=== PATIENT | male | born 1930 | race Caucasian/White ===

== ENCOUNTER 2016-08-11 12:34 | Emergency (ER) | payer OTHER, MEDICARE ==
[~2016-08-11 12:34] MED LIST: ACETAMINOPHEN P1 TA1 PO; ALBUTEROL HFA60 DOSE IN; ASPIRIN ADULT L81 MG PO; CARDIZEM C1 PO; CARTIA XT180 MG/24 PO; FLAGYL500 MG PO; FUROSEMIDE40 MG PO; IPRATROPIUM BR0.02 % IN; LEVAQUIN250 M1 PO; LEVAQUIN500 MG PO; LISINOPRIL40 MG PO; LOVASTATIN10 MG PO; RISPERDAL0.25 MG PO; RISPERIDONE1 MG PO
--- NOTE | 2016-08-11 16:09 | DIAGNOSTIC IMAGING REPORT ---
PROCEDURE: XR CHEST 1 VIEW INDICATION: WEAKNESS, initial encounter TECHNIQUE: Portable AP view 02:59 p.m. COMPARISON: Chest x-ray 02/05/2016 FINDINGS: Right mid lung scar. Left mid lung and calcified granulomas. Heart and mediastinum are normal. Tortuous aorta. Thorax is normal. IMPRESSION: 1. No acute changes 2. Old granulomatous disease 3. Right mid lung scar.
--- NOTE | 2016-08-11 17:15 | DIAGNOSTIC IMAGING REPORT ---
PROCEDURE: CT HEAD WITHOUT CONTRAST INDICATION: Head injury with persistent headache, initial encounter TECHNIQUE: Noncontrast axial images with sagittal and coronal reformations. COMPARISON: Head CT 02/05/2016 FINDINGS: Moderate cortical atrophy with normal ventricular system. Mild white matter chronic ischemic changes. Small of right pontine lacunar infarct. Small old right occipital infarct. No evidence of acute intracranial process. Extensive calcific atherosclerosis of the carotid and vertebral arteries. Dislocated left eye lens. Visualized mastoids and sinuses are clear. IMPRESSION: 1. No acute intracranial abnormality 2. Moderate atrophy and mild white matter chronic ischemic changes 3. 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 Dislocated left eye lens. 5. Findings discussed with Dr. Pitts at 05:10 p.m., [place] Standard Time
--- NOTE | 2016-08-11 17:45 | ED NURSING NOTES ---
Clinical Report - Nurses [facility] [address] [place] [address] 08/11/2016 12:35 Patient: BROOKE WAY TRIAGE Triage time 12:46 Aug 11 2016. Acuity: LEVEL 3. Chief Complaint: (headaches, ringing in the ears). Alert. No acute distress. MAVIS COMA SCORE: [place] Coma Scale: 15- eyes open spontaneously (4); best verbal response- oriented x 4 (5); best motor response- obeys commands (6). --12:54 Caitlin Man R.N. 12:46 08/11/16. BP: 135/69. HR: 69. RR: 18. O2 saturation: 100%. --12:54 Caitlin Man R.N. 13:11 08/11/16. Temp: 97.8 F. --13:11 Caitlin Man R.N. Weight: 72.5 kg stated. Height/Length: 68 inches Estimated. BMI: 24.3. --12:45 Caitlin Man R.N. Medications Lisinopril Oral. Lovastatin Oral. --12:52 Caitlin Man R.N. Tylenol PM. --12:52 Caitlin Man R.N. Aspirin Oral (Tablet 81 mg). --12:52 Caitlin Man R.N. Vitamins. --12:53 Caitlin Man R.N. Medication/allergy information source: the patient's family. --12:54 Caitlin Man R.N. Allergies Strawberries. --12:52 Caitlin Man R.N. History Arrived by private vehicle. Historian: family. Primary physician (Dr. Bush). ( Family states they are brining in their father because he fell outside last week, fell up against a railing on the porch. Hit his Right side of face. No obvious injury. This has happened twice. Took him into Rachelle's's office for check up, Rachelle states no obvious injury but his droop on his face is most likely his chronic [place] Palsy. Daughter states he has a headaches, ringing in the ears, sleepless nights and pain on his right side of face. Rachelle suggested a CT.). Onset. (last week). Treatment [facility] WORKER: None. PAST MEDICAL HX: ( unknown flu shot this year). SOCIAL HX: Smoker- current status unknown (chews). No alcohol use or drug use. NUTRITIONAL RISK ASSESSMENT: The nutritional risk assessment revealed no deficiencies. LEARNING NEEDS ASSESSMENT: The learning needs assessment revealed no barriers. SKIN INTEGRITY ASSESSMENT: Skin integrity risk assessment completed. No skin integrity risk identified. --12:54 Caitlin Man R.N. PROBLEMS: UTI - Urinary Tract Infection. Laceration. Eye Pain. CVA - Cerebrovascular Accident. Viveros's Palsy. Anemia. Leukocytosis. Hyperkalemia. Dehydration. Renal Failure. Abdominal Pain. Congestive Heart Failure. Diverticulitis. Fall. Contusion. Leaky valve in heart?. Hypercholesterolemia. Hypertension. COPD - Chronic Obstructive Pulmonary Disease. --12:53 Caitlin Man R.N. CVA - Cerebrovascular Accident [Resolved]. --12:53 Caitlin Man R.N. ADDITIONAL SURGERIES: Bowel Surgery. Tonsillectomy. --12:53 Caitlin Man R.N. Interventions ID band on patient. To room. --12:54 Caitlin Man R.N. NURSING PROGRESS NOTES Patient ready for evaluation- ED physician notified. --12:55 Caitlin Man R.N. 15:28 08/11/2016 Site #1 started via IV in the left upper arm with an 20g angiocath, with aseptic technique and good blood return; one attempt. Blood drawn: rainbow set. Labeled in the presence of the patient and sent to the lab. --15:28 Felisha Araujo R.N. 15:28 08/11/2016 Started bag #1 1000 mL IV Fluids IV NS (Saline); at 250 mL/hr over 3 hour(s) via site #1 via IV pump. Allergies verified and confirmed 5 rights. IV patency established. IV site checked: no pain, redness, or swelling. IV flushed thoroughly pre- and post-medication administration. --15:28 Felisha Araujo R.N. EKG time: (1507 PM). EKG was performed by a tech and shown to the ED physician. --15:35 Patrick Ford 16:14 08/11/16. BP: 125/81. HR: 62. RR: 18. O2 saturation: 100%. Pain level now: 0/10. --16:15 Finesse Vazquez R.N. The patient reports no complaints and he is calm and resting quietly. RESPIRATORY: No respiratory distress. Breath sounds normal. CVS: Normal sinus rhythm noted. SKIN: Skin is warm and dry. Skin color within normal limits. Call light placed in reach. Side rails up. --17:40 Finesse Vazquez R.N. 17:39 08/11/16. BP: 127/47. HR: 64. RR: 16. O2 saturation: 99%. Temp: 98.6 F (oral). Pain level now: 0/10. --17:40 Finesse Vazquez R.N. Locked/Released at 08/14/2016 19:41 by Finesse Vazquez R.N.
--- NOTE | 2016-08-11 17:45 | ED ORDER SUMMARY ---
..... Patient: BROOKE WAY OrderSheet [facility] VisitID: [id number] [place] [address] 86y, M Registration Date/Time: 08/11/2016 ORDER SHEET Weight: 72.5 kg (stated) Allergies: Strawberries GENERAL ORDERS: UA-Culture if indicated Urgent (14:11 08/11/2016 HOShaughnessy R.N. per protocol) (Ack 14:13 MICHAELurca ER Tech1) (14:50 HOShaughnessy R.N.) Chest 1V Urgent (14:53 08/11/2016 Cornelio AQUINO) (Ack 14:55 Prem ER Tech1) (18:02 MWinterer R.N.) PT with INR Urgent (14:53 08/11/2016 Cornelio AQUINO) (Ack 14:55 Prme ER Tech1) (15:28 MWinterer R.N.) BNP Urgent (14:53 08/11/2016 Cornelio AQUINO) (Ack 14:55 Meenua ER Tech1) (15:28 MWinterer R.N.) Cardiac Panel Stat (14:53 08/11/2016 Cornelio AQUINO) (Ack 14:55 Prem ER Tech1) (15:28 MWinterer R.N.) EKG - ER Stat (14:53 08/11/2016 Cornelio AQUINO) (Ack 14:55 Prem ER Tech1) (15:06 IJurca ER Tech1) CT Head wo Cont Urgent (16:06 08/11/2016 Cornelio AQUINO) (Ack 16:07 Prem ER Tech1) (18:02 MWinterer R.N.) - (road test - attempt transfer) (16:26 08/11/2016 Cornelio AQUINO) (Ack 16:29 Prem ER Tech1) (17:01 Meenua ER Tech1) ESR Urgent (17:43 08/11/2016 Cornelio AQUINO) (Ack 17:47 Prem ER Tech1) (18:02 MWinterer R.N.) MEDICATION ORDERS: IV FLUIDS: IV NS : initial bolus none -, then 250 mL/hr for 3h (NOW); Urgent (14:52 08/11/2016 Cornelio AQUINO) (Ack 15:03 MWinterer R.N.) (15:28 MWinterer R.N.) ORDER SHEET NOTES: [Electronically signed by Gagan Pitts MD (17:11 08/12/2016)] [Electronically signed by Finesse Vazquez R.N. (19:41 08/14/2016)] [Electronically locked/signed by Finesse Vazquez R.N. (19:41 08/14/2016)]
--- NOTE | 2016-08-11 17:45 | ED ORDER SUMMARY ---
..... Patient: BROOKE WAY OrderSheet [facility] VisitID: [id number] [place] [address] 86y, M Registration Date/Time: 08/11/2016 ORDER SHEET Weight: 72.5 kg (stated) Allergies: Strawberries GENERAL ORDERS: UA-Culture if indicated Urgent (14:11 08/11/2016 HOShaughnessy R.N. per protocol) (Ack 14:13 MICHAELurca ER Tech1) (14:50 HOShaughnessy R.N.) Chest 1V Urgent (14:53 08/11/2016 Cornelio AQUINO) (Ack 14:55 Prem ER Tech1) (18:02 MWinterer R.N.) PT with INR Urgent (14:53 08/11/2016 Cornelio AQUINO) (Ack 14:55 Prem ER Tech1) (15:28 MWinterer R.N.) BNP Urgent (14:53 08/11/2016 Cornelio AQUINO) (Ack 14:55 Meenua ER Tech1) (15:28 MWinterer R.N.) Cardiac Panel Stat (14:53 08/11/2016 Cornelio AQUINO) (Ack 14:55 Prem ER Tech1) (15:28 MWinterer R.N.) EKG - ER Stat (14:53 08/11/2016 Cornelio AQUINO) (Ack 14:55 Prem ER Tech1) (15:06 IJurca ER Tech1) CT Head wo Cont Urgent (16:06 08/11/2016 Cornelio AQUINO) (Ack 16:07 Prem ER Tech1) (18:02 MWinterer R.N.) - (road test - attempt transfer) (16:26 08/11/2016 Cornelio AQUINO) (Ack 16:29 Prem ER Tech1) (17:01 Meenua ER Tech1) ESR Urgent (17:43 08/11/2016 Cornelio AQUINO) (Ack 17:47 Prem ER Tech1) (18:02 MWinterer R.N.) MEDICATION ORDERS: IV FLUIDS: IV NS : initial bolus none -, then 250 mL/hr for 3h (NOW); Urgent (14:52 08/11/2016 Cornelio AQUINO) (Ack 15:03 MWinterer R.N.) (15:28 MWinterer R.N.) ORDER SHEET NOTES: [Electronically signed by Gagan Pitts MD (17:11 08/12/2016)] [Electronically signed by Finesse Vazquez R.N. (19:41 08/14/2016)] [Electronically locked/signed by Finesse Vazquez R.N. (19:41 08/14/2016)]
--- NOTE | 2016-08-11 17:45 | ED CLINICAL REPORT ---
Clinical Report - Physicians/Mid Levels [facility] [address] [place] [address] 08/11/2016 12:35 Patient: BROOKE WAY Time Seen: 14:25. Arrived- By private vehicle. Historian- patient and family. HISTORY OF PRESENT ILLNESS Chief Complaint: SLEEPING A LOT and HEADACHES. This started at 7 days ago; Pt suffered a ground level fall onto the L side of his head about 7 days ago. He has had a waxing and waning headache for the last 7 days. HIs gait us uaually poor. Two weeks ago he could use a walker a bit. Now he can transfer to his wheel chair and scoot around his home. His family notices that he is sleeping much more than usual. and is still present. It was gradual in onset and has been waxing/waning. At its maximum, severity described as moderate. When seen in the E.D., severity described as moderate. The patient has had a headache, fatigue and weakness. Similar symptoms previously: None. Recent medical care: The patient was seen recently by a health care provider. ( Family has been in contact with Dr Bush). REVIEW OF SYSTEMS No fever, sore throat, cough, difficulty breathing or abdominal pain. No nausea, vomiting, diarrhea, difficulty with urination or skin rash. No blackouts. He has had a headache. He has had difficulty with ambulation. It has been similar to previous symptoms. All systems otherwise negative, except as recorded above. PAST HISTORY Dr Bush PROBLEMS: UTI - Urinary Tract Infection. Laceration. Eye Pain. CVA - Cerebrovascular Accident. Viveros's Palsy. Anemia. Leukocytosis. Hyperkalemia. Dehydration. Renal Failure. Abdominal Pain. Congestive Heart Failure. Diverticulitis. Fall. Contusion. Leaky valve in heart?. Hypercholesterolemia. Hypertension. COPD - Chronic Obstructive Pulmonary Disease. --12:53 Caitlin Man R.N. CVA - Cerebrovascular Accident [Resolved]. SOCIAL HISTORY Residence: With family near by. he lives alone. ADDITIONAL NOTES The nursing notes have been reviewed. PHYSICAL EXAM Vital Signs: 08/11/2016 17:39 BP: 127/47. HR: 64. RR: 16. O2 saturation: 99%. Temp: 98.6 F. Pain level now: 0. 08/11/2016 16:14 BP: 125/81. HR: 62. RR: 18. O2 saturation: 100%. Pain level now: 0. 08/11/2016 13:11 Temp: 97.8 F. 08/11/2016 12:46 BP: 135/69. HR: 69. RR: 18. O2 saturation: 100%. Appearance: Alert. No acute distress. (Very hard of hearing). Eyes: Eyes normal inspection. (Childhood L eye injury). ENT: Pharynx normal. Neck: Normal inspection. Neck supple. CVS: Normal heart rate and rhythm. Respiratory: No respiratory distress. Breath sounds normal. Abdomen: No visible injury. Soft and nontender. Bowel sounds normal. Back: No CVA tenderness. Skin: Skin warm. Normal skin color. Extremities: Extremities exhibit normal ROM. No lower extremity edema. Neuro: No alteration in mental status. No cranial nerve deficit. No motor deficit. No sensory deficit. LABS, X-RAYS, AND EKG EKG: No acute ischemia. Normal sinus rhythm. Normal P waves. Normal LORRAINE. RBBB. Normal ST and T waves. Chest X-ray: (PROCEDURE: XR CHEST 1 VIEW INDICATION: WEAKNESS, initial encounter TECHNIQUE: Portable AP view 02:59 p.m. COMPARISON: Chest x-ray 02/05/2016 FINDINGS: Right mid lung scar. Left mid lung and calcified granulomas. Heart and mediastinum are normal. Tortuous aorta. Thorax is normal. IMPRESSION: 1. No acute changes 2. Old granulomatous disease 3. Right mid lung scar. Electronically Final signed by:Lobo Cuellar MD 08/11/2016 4:09:46 PM). The X-rays were interpreted by the radiologist and contemporaneously by me. CT Head: (COMPARISON: Head CT 02/05/2016 FINDINGS: Moderate cortical atrophy with normal ventricular system. Mild white matter chronic ischemic changes. Small of right pontine lacunar infarct. Small old right occipital infarct. No evidence of acute intracranial process. Extensive calcific atherosclerosis of the carotid and vertebral arteries. Dislocated left eye lens. Visualized mastoids and sinuses are clear. IMPRESSION: 1. No acute intracranial abnormality 2. Moderate atrophy and mild white matter chronic ischemic changes 3. 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 Dislocated left eye lens. 5. Findings discussed with Dr. Pitts at 05:10 p.m., [place] Standard Time Dictated by: LOBO CUELLAR MD D: LANPI;08/11/161714 <Electronically signed by LOBO CUELLAR MD in OV> 08/11/161714). The study was interpreted by the radiologist and discussed with the radiologist. Laboratory Tests: UA-Culture if indicated: (MEHUL: 08/11/2016 14:08) ( MsgRcvd 08/11/2016 14:38) Final results Test Result Flag Units (Reference) URINE COLOR STRAW URINE APPEARANCE CLEAR URINE GLUCOSE NEGATIVE (NEGATIVE) URINE BILIRUBIN NEGATIVE (NEGATIVE) URINE KETONE NEGATIVE (NEGATIVE) URINE SPECIFIC GRAVITY 1.020 (1.010-1.030) URINE PH 7.0 (5.0-8.0) URINE PROTEIN NEGATIVE (NEGATIVE) URINE UROBILINOGEN 0.2 EU/dL (0.2-1.0) URINE NITRITE NEGATIVE (NEGATIVE) URINE BLOOD NEGATIVE (NEGATIVE) URINE LEUK ESTERASE NEGATIVE (NEGATIVE) URINE RBC 0-1 rbc/hpf (0-1) URINE WBC 1-3 wbc/hpf (0-1) URINE EPITHELIAL CELLS 1-3 EPI/hpf (0-5) URINE BACTERIA TRACE (<1+) (NONE SEEN) URINE COMMENT CULT NOT INDICATED URINE CULTURES ARE SET-UP BASED ON THE FOLLOWING CRITERIA:POSITIVE NITRITEPOSITIVE LEUKOCYTE ESTERASEGREATER THAN 10 WHITE BLOOD CELLSMODERATE (2+) OR GREATER BACTERIA ESR: (MEHUL: 08/11/2016 15:15) ( MsgRcvd 08/11/2016 18:05) Final results Test Result Flag Units (Reference) SED RATE WESTERGREN 30 H mm/hr (0-20) CBC w Diff: (MEHUL: 08/11/2016 15:15) ( MsgRcvd 08/11/2016 15:44) Final results Test Result Flag Units (Reference) WHITE BLOOD COUNT 11.6 H K/uL (4.5-11.5) RED BLOOD COUNT 4.26 L M/uL (4.50-5.90) HEMOGLOBIN 13.4 L gm/dL (13.5-17.5) HEMATOCRIT 40.9 L % (41.0-53.0) MEAN CELL VOLUME 96 fL (80-100) MEAN CORPUSCULAR HGB 32 pg (26-34) MEAN CORPUSCULAR HGB CONC 33 g/dL (31-37) RED CELL DISTRIBUTION WIDTH 12.8 % (11.6-14.8) PLATELET COUNT 224 K/uL (150-400) NEUTROPHIL % 88.8 H % (50-75) LYMPH % 8.1 L % (25-40) MONO % 2.5 L % (3-14) EOSINOPHIL % 0.4 % (0-4) BASOPHIL % 0.2 % (0-2) PT with INR: (MEHUL: 08/11/2016 15:15) ( [facility] 08/11/2016 15:54) Final results Test Result Flag Units (Reference) INR 1.0 (0.8-1.2) Low Intensity Therapy: INR 1.5-2.0 PT range 18.5-23.1Mod.Intensity Therapy: INR 2.0-3.0 PT range 23.1-31.5High Intensity Therapy: INR 2.5-3.5 PT range 27.4-35.5High Intensity Therapy 2: INR 3.0-4.0 PT range 31.5-39.3 BNP: (MEHUL: 08/11/2016 15:15) ( [facility] 08/11/2016 16:03) Final results Test Result Flag Units (Reference) B-TYPE NATRIURETIC PEPTIDE 52.4 pg/ml (5-100) CHEM 13 PANEL: (MEHUL: 08/11/2016 15:15) ( [facility] 08/11/2016 16:03) Final results Test Result Flag Units (Reference) GLUCOSE 108 mg/dL (70-110) BUN 32 H mg/dL (7-18) CREATININE 0.8 mg/dL (0.6-1.3) Estimated GFR >60 mL/min Estimated GFR- >60 mL/min Note: Persistent reduction over 3 months in eGFR<60 mL/min/1.73 m2 defines CKD. Patients with eGFR values>=60 mL/min/1.73 m2 may also have CKD if evidence ofpersistent proteinuria. Additional information may be foundat www.kidney.org. SODIUM 139 mmol/L (136-145) POTASSIUM 4.9 mmol/L (3.5-5.1) Slightly hemolyzed specimen CHLORIDE 104 mmol/L (98-107) CARBON DIOXIDE 32 mmol/L (21-32) CALCIUM 9.2 mg/dL (8.5-10.1) TOTAL PROTEIN 7.1 g/dL (6.4-8.2) ALBUMIN 3.3 g/dL (3.3-5.0) BILIRUBIN, TOTAL 0.8 mg/dL (0.0-1.0) ALKALINE PHOSPHATASE 69 U/L (46-116) AST (SGOT) 27 U/L (15-37) Slightly hemolyzed specimen ALT (SGPT) 36 U/L (12-78) CPK 41 U/L (24-260) Slightly hemolyzed specimen MAGNESIUM 2.2 mg/dL (1.8-2.4) TROPONIN I <0.05 ng/mL (0.00-1.5) TROPONIN REFERENCE RANGE:<0.1 NEGATIVE0.1-1.5 INDETERMINANT>1.5 POSITIVE . PROGRESS AND PROCEDURES Course of Care: A sed rate ordered at the time of discharge is mildly elevated but not elevated to the extent expected for temporal artreitis. I cannot find evidence for an acute neurologic event or trauma. No evidence of pneumonia, UTI toxic or metabilic abnormality. His family and I are concerned that he may need a higher level of care before long. The elevated ESR is not elevated enough to warrant an temporal artery Bx for Dx of temporal arteritis. Rare exceptions can occur. Disposition: Discharged. Condition: stable. CLINICAL IMPRESSION WEAKNESS. INSTRUCTIONS (NO NEW ILLNESS OR INJURY FOUND WEAKNESS MAY MAKE LIVING IN CURRENT HOME A PROBLEM FOR SURE REPLACE THE FALL BUTTON A SED RATE IS PENDING.). Follow-up: Follow up with doctor CROW in five days. Understanding of the discharge instructions verbalized by patient and family. (Electronically signed by Gagan Pitts MD 08/12/2016 17:11)
--- NOTE | 2016-08-11 17:45 | ED NURSING NOTES ---
Clinical Report - Nurses [facility] [address] [place] [address] 08/11/2016 12:35 Patient: BROOKE WAY TRIAGE Triage time 12:46 Aug 11 2016. Acuity: LEVEL 3. Chief Complaint: (headaches, ringing in the ears). Alert. No acute distress. MAVIS COMA SCORE: [place] Coma Scale: 15- eyes open spontaneously (4); best verbal response- oriented x 4 (5); best motor response- obeys commands (6). --12:54 Caitlin Man R.N. 12:46 08/11/16. BP: 135/69. HR: 69. RR: 18. O2 saturation: 100%. --12:54 Caitlin Man R.N. 13:11 08/11/16. Temp: 97.8 F. --13:11 Caitlin Man R.N. Weight: 72.5 kg stated. Height/Length: 68 inches Estimated. BMI: 24.3. --12:45 Caitlin Man R.N. Medications Lisinopril Oral. Lovastatin Oral. --12:52 Caitlin Man R.N. Tylenol PM. --12:52 Caitlin Man R.N. Aspirin Oral (Tablet 81 mg). --12:52 Caitlin Man R.N. Vitamins. --12:53 Caitlin Man R.N. Medication/allergy information source: the patient's family. --12:54 Caitlin Man R.N. Allergies Strawberries. --12:52 Caitlin Man R.N. History Arrived by private vehicle. Historian: family. Primary physician (Dr. Bush). ( Family states they are brining in their father because he fell outside last week, fell up against a railing on the porch. Hit his Right side of face. No obvious injury. This has happened twice. Took him into Rachelle's's office for check up, Rachelle states no obvious injury but his droop on his face is most likely his chronic [place] Palsy. Daughter states he has a headaches, ringing in the ears, sleepless nights and pain on his right side of face. Rachelle suggested a CT.). Onset. (last week). Treatment APPLICATIONS INSTRUCTOR: None. PAST MEDICAL HX: ( unknown flu shot this year). SOCIAL HX: Smoker- current status unknown (chews). No alcohol use or drug use. NUTRITIONAL RISK ASSESSMENT: The nutritional risk assessment revealed no deficiencies. LEARNING NEEDS ASSESSMENT: The learning needs assessment revealed no barriers. SKIN INTEGRITY ASSESSMENT: Skin integrity risk assessment completed. No skin integrity risk identified. --12:54 Caitlin Man R.N. PROBLEMS: UTI - Urinary Tract Infection. Laceration. Eye Pain. CVA - Cerebrovascular Accident. Viveros's Palsy. Anemia. Leukocytosis. Hyperkalemia. Dehydration. Renal Failure. Abdominal Pain. Congestive Heart Failure. Diverticulitis. Fall. Contusion. Leaky valve in heart?. Hypercholesterolemia. Hypertension. COPD - Chronic Obstructive Pulmonary Disease. --12:53 Caitlin Man R.N. CVA - Cerebrovascular Accident [Resolved]. --12:53 Caitlin Man R.N. ADDITIONAL SURGERIES: Bowel Surgery. Tonsillectomy. --12:53 Caitlin Man R.N. Interventions ID band on patient. To room. --12:54 Caitlin Man R.N. NURSING PROGRESS NOTES Patient ready for evaluation- ED physician notified. --12:55 Caitlin Man R.N. 15:28 08/11/2016 Site #1 started via IV in the left upper arm with an 20g angiocath, with aseptic technique and good blood return; one attempt. Blood drawn: rainbow set. Labeled in the presence of the patient and sent to the lab. --15:28 Felisha Araujo R.N. 15:28 08/11/2016 Started bag #1 1000 mL IV Fluids IV NS (Saline); at 250 mL/hr over 3 hour(s) via site #1 via IV pump. Allergies verified and confirmed 5 rights. IV patency established. IV site checked: no pain, redness, or swelling. IV flushed thoroughly pre- and post-medication administration. --15:28 Felisha Araujo R.N. EKG time: (1507 PM). EKG was performed by a tech and shown to the ED physician. --15:35 Patrick Ford 16:14 08/11/16. BP: 125/81. HR: 62. RR: 18. O2 saturation: 100%. Pain level now: 0/10. --16:15 Finesse Vazquez R.N. The patient reports no complaints and he is calm and resting quietly. RESPIRATORY: No respiratory distress. Breath sounds normal. CVS: Normal sinus rhythm noted. SKIN: Skin is warm and dry. Skin color within normal limits. Call light placed in reach. Side rails up. --17:40 Finesse Vazquez R.N. 17:39 08/11/16. BP: 127/47. HR: 64. RR: 16. O2 saturation: 99%. Temp: 98.6 F (oral). Pain level now: 0/10. --17:40 Finesse Vazquez R.N. Locked/Released at 08/14/2016 19:41 by Finesse Vazquez R.N.
--- NOTE | 2016-08-14 19:42 | ED DISCHARGE INSTRUCTIONS ---
Patient: BROOKE WAY General Instructions [facility] VisitID: [id number] [address] [place] [address] 86y, M Registration Date/Time: 08/11/2016 WEAKNESS. INSTRUCTIONS (NO NEW ILLNESS OR INJURY FOUND WEAKNESS MAY MAKE LIVING IN CURRENT HOME A PROBLEM FOR SURE REPLACE THE FALL BUTTON A SED RATE IS PENDING.). Follow-up: Follow up with doctor MARIA in five days. Understanding of the discharge instructions verbalized by patient and family. (Electronically signed by Gagan Pitts MD 08/12/2016 17:11)
--- NOTE | 2016-08-14 19:42 | ED DISCHARGE INSTRUCTIONS ---
Patient: BROOKE WAY General Instructions [facility] VisitID: [id number] [address] [place] [address] 86y, M Registration Date/Time: 08/11/2016 WEAKNESS. INSTRUCTIONS (NO NEW ILLNESS OR INJURY FOUND WEAKNESS MAY MAKE LIVING IN CURRENT HOME A PROBLEM FOR SURE REPLACE THE FALL BUTTON A SED RATE IS PENDING.). Follow-up: Follow up with doctor MARIA in five days. Understanding of the discharge instructions verbalized by patient and family. (Electronically signed by Gagan Pitts MD 08/12/2016 17:11)
--- NOTE | 2016-08-14 19:42 | ED MAR SUMMARY ---
..... Medication Administration Record [facility] [address] [place] [address] Patient: BROOKE WAY Visit ID: [id number] 86y, M Weight: 72.5 kg Height/Length: 68 in BMI: 24.3 ALLERGIES: Strawberries Start 15:28 08/11/2016 Felisha Araujo R.N. Medication Administered: IV NS (SALINE), Dose: IV Fluids over 3 hour(s), Rate: 250 mL/hr, Dispensed: 1000 mL bag, Site: #1 left upper arm. Medication Ordered: IV NS : initial bolus none -, then 250 mL/hr for 3h (NOW); Urgent.
--- NOTE | 2016-08-14 19:42 | ED MED RECONCILIATION SUMMARY ---
Patient: BROOKE WAY Medication Reconciliation Report [facility] VisitID: [id number] [address] [place] [address] 86y, M Registration Date/Time: 08/11/2016 Weight: 72.5 kg Height/Length: 68 in. BMI: 24.3 ALLERGIES: Strawberries The patient's Home Medications are listed below: THE FOLLOWING MEDICATIONS NEED TO BE RECONCILED: Aspirin Oral (81 mg) Lisinopril Oral Lovastatin Oral Tylenol PM Vitamins The source(s) of the original Home Medication information: patient's family member The following Medications were given to the patient in the Emergency Department: IV NS IV Fluids bolus 0, then 250 mL/hr, administered: 08/11/2016 3:28:00 PM The following Medications were prescribed to the patient: None.
--- NOTE | 2016-08-14 19:42 | ED MAR SUMMARY ---
..... Medication Administration Record [facility] [address] [place] [address] Patient: BROOKE WAY Visit ID: [id number] 86y, M Weight: 72.5 kg Height/Length: 68 in BMI: 24.3 ALLERGIES: Strawberries Start 15:28 08/11/2016 Felisha Araujo R.N. Medication Administered: IV NS (SALINE), Dose: IV Fluids over 3 hour(s), Rate: 250 mL/hr, Dispensed: 1000 mL bag, Site: #1 left upper arm. Medication Ordered: IV NS : initial bolus none -, then 250 mL/hr for 3h (NOW); Urgent.
--- NOTE | 2016-08-14 19:42 | ED MED RECONCILIATION SUMMARY ---
Patient: BROOKE WAY Medication Reconciliation Report [facility] VisitID: [id number] [address] [place] [address] 86y, M Registration Date/Time: 08/11/2016 Weight: 72.5 kg Height/Length: 68 in. BMI: 24.3 ALLERGIES: Strawberries The patient's Home Medications are listed below: THE FOLLOWING MEDICATIONS NEED TO BE RECONCILED: Aspirin Oral (81 mg) Lisinopril Oral Lovastatin Oral Tylenol PM Vitamins The source(s) of the original Home Medication information: patient's family member The following Medications were given to the patient in the Emergency Department: IV NS IV Fluids bolus 0, then 250 mL/hr, administered: 08/11/2016 3:28:00 PM The following Medications were prescribed to the patient: None.
== END 2016-08-11 18:00 | disposition home or self-care (01) ==
LOC: ED SRH 12:34
DX: R53.1 Weakness (principal); I10 Essential (primary) hypertension; I50.9 Heart failure, unspecified; J44.9 Chronic obstructive pulmonary disease, unspecified; E87.5 Hyperkalemia
CPT/HCPCS: 90004; 90100; 90616; 91320; 92610; 92720; 94060; 95059; 95150

== ENCOUNTER 2016-08-21 15:04 | Observation (INO) | payer OTHER, MEDICARE ==
[~2016-08-21] VITALS: Ht 177.8 cm; Wt 74.1 kg
--- NOTE | 2016-08-21 15:40 | DIAGNOSTIC IMAGING REPORT ---
PROCEDURE: CT HEAD WITHOUT CONTRAST INDICATION: STROKE TECHNIQUE: Axial CT images were acquired through the head. Coronal and sagittal reformations were created. COMPARISON: Head CT 08/11/2016 FINDINGS: Moderate cortical atrophy with normal ventricular system. Mild white matter chronic ischemic changes. Small of right pontine lacunar infarct. Small old right occipital infarct. No evidence of acute intracranial process. Extensive calcific atherosclerosis of the carotid and vertebral arteries. Dislocated left eye lens. Visualized mastoids and sinuses are clear. IMPRESSION: 1. No acute intracranial abnormality 2. Moderate atrophy and mild white matter chronic ischemic changes 3. 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 Dislocated left eye lens. All CT scans at this facility use dose modulation, iterative reconstruction, and/or weight-based dosing when appropriate to reduce radiation dose to as low as reasonably achievable.
--- NOTE | 2016-08-21 16:28 | DIAGNOSTIC IMAGING REPORT ---
PROCEDURE: XR CHEST 1 VIEW INDICATION: CONGESTION TECHNIQUE: Portable AP view 04:00 p.m. COMPARISON: Chest 08/11/2016 FINDINGS: Right mid lung scar. Left mid lung and calcified granulomas. Heart and mediastinum are normal. Tortuous aorta. Thorax is normal. IMPRESSION: 1. No acute changes 2. Old granulomatous disease
--- NOTE | 2016-08-21 20:44 | ED ORDER SUMMARY ---
..... Patient: BROOKE WAY OrderSheet [facility] VisitID: [id number] [address] [place] [address] 86y, M Registration Date/Time: 08/21/2016 ORDER SHEET Weight: 90.7 kg (estimated) Allergies: Strawberries GENERAL ORDERS: CT Head wo Cont Urgent (15:20 08/21/2016 Amandeep Mckinney) (Ack 15:21 TBergley) (15:40 MCampbell) Stroke Panel Stat (15:48 08/21/2016 Amandeep Mckinney) (Ack 15:55 TBergley) (17:31 TBergley) UA-Culture if indicated Urgent (15:48 08/21/2016 Amandeep Mckinney) (Ack 15:55 TBergley) (17:59 EInderbitzen R.N.) Chest 1V Urgent (15:48 08/21/2016 Amandeep Mckinney) (Ack 15:55 TBergley) (16:26 TBergley) Soft Restraints per protocol (19:45 08/21/2016 EInderbitzen R.N. verbal order read back to Amandeep Mckinney) (20:36 EInderbitzen R.N.) MEDICATION ORDERS: Haldol IM 5 mg (HIGH ALERT MEDICATION, NOW) (18:03 08/21/2016 EInderbitzen R.N. verbal order read back to Amandeep Mckinney) (18:04 EInderbitzen R.N.) IV FLUIDS: Ativan IV 0.5 mg (HIGH ALERT MEDICATION, NOW) (16:22 08/21/2016 Amandeep Mckinney) (16:30 EInderbitzen R.N.) IV NS : initial bolus none -, then 1000 mL/hr for X1 (NOW) (17:25 08/21/2016 Amandeep Mckinney) (19:26 EInderbitzen R.N.) Haldol IV 5 mg (HIGH ALERT MEDICATION, NOW) (17:45 08/21/2016 Amandeep Mckinney) (Cancelled: Physician Order18:03 EInderbitzen R.N.) Haldol IV 5 mg (HIGH ALERT MEDICATION, NOW) (20:42 08/21/2016 Amandeep Mckinney) (21:26 Lucas Vallejo) ORDER SHEET NOTES: [Electronically signed by Mark Alfonso Dr. (20:52 08/21/2016)] [Electronically signed by Kristel Cui R.N. (21:37 08/21/2016)] [Electronically locked/signed by Kristel Cui R.N. (21:37 08/21/2016)]
--- NOTE | 2016-08-21 20:44 | ED NURSING NOTES ---
Clinical Report - Nurses [facility] [address] [place] [address] 08/21/2016 15:04 Patient: BROOKE WAY TRIAGE Triage time 1506. Acuity: LEVEL 2. Chief Complaint: IMPAIRED SPEECH and DECREASED RESPONSIVENESS. CHERYL COMA SCORE: Cheryl Coma Scale: 13- eyes open to voice (3); best verbal response- disoriented (4); best motor response- obeys commands (6). --15:20 Miranda Jorge R.N. 15:09 08/21/16. BP: 117/54. HR: 51. RR: 8. O2 saturation: 100%. Temp: 98.4 F. --15:20 Miranda Jorge R.N. Weight: 90.7 kg estimated. Height/Length: 70 inches Estimated. BMI: 28.7. --15:15 Miranda Jorge R.N. Medications Aspirin Oral (Tablet 81 mg). Lisinopril Oral. Lovastatin Oral. Tylenol PM. Vitamins. --15:11 Miranda Jorge R.N. Sertraline HCl Oral. --15:11 Miranda Jorge R.N. LORazepam Oral. --15:11 Miranda Jorge R.N. Allergies Strawberries. --15:11 Miranda Jorge R.N. History ( 1501 Code stroke called. Per EMS pt was having slurred speech and decreased LOC. Slurred speech baseline per neighbor secondary to previous CVAs. Per EMS pt has had cough and fever and been in and out of schillhammer's office repeatedly over the past 3 weeks for shortness of breath.). Treatment RECREATIONAL THERAPY TECHNICIAN: Finger stick glucose performed (142). BP: 110/60. HR: 90. O2 saturation: 98 on oxygen (at 2 liters/minute). End tidal CO2: 35. SOCIAL HX: ( unable to obtain history due to DLOC and slurred speech). --15:20 Luisito, K Christina, R.N. Interventions ID band on patient. To treatment room. --15:20 Miranda Jorge R.N. PHYSICAL ASSESSMENT 15:22 08/21/16. To room via stretcher. GENERAL / NEURO / PSYCH: The patient is disoriented to place, time and situation. Slurred speech. Pupillary exam: (right pinpoint, left). Left pupil: 8mm. Left pupil not reactive. HEENT: No facial asymmetry noted. RESPIRATORY: Respirations not labored. CVS: Capillary refill less than 2 seconds. SKIN: Skin is intact, warm and dry. --15:22 Miranda Jorge R.N. NURSING PROGRESS NOTES 15:22 08/21/16. Patient transported to CT. --15:22 Miranda Jorge R.N. 15:30. Patient returned from CT by stretcher with nurse. (accompanied to CT by this RN). --15:32 Miranda Jorge R.N. 15:33 08/21/16. The plan of care for this patient has been created. motorcycle engine assembler, pulse oximeter, end tidal CO2 monitor and NIBP monitor placed on patient. Patient gowned. Head of bed elevated. Call light placed in reach. Side rails up x 2. Bed placed in lowest position. Brakes of bed on. Patient ready for evaluation- chart flagged. --15:33 Miranda Jorge R.N. 15:44 08/21/16. HR: 48. RR: 12. O2 saturation: 99%. --15:44 Miranda Jorge R.N. 15:47 08/21/16. HR: 50. RR: 18. O2 saturation: 100%. Pain level now 0/10. --15:47 Kristel Cui R.N. 15:29 08/21/2016 Site #2 started via IV in the left hand with an 20g angiocath, with aseptic technique and good blood return; one attempt. Blood drawn: rainbow set. Labeled in the presence of the patient and sent to the lab. Saline lock flushed with 10 mL saline. --16:29 Kristel Cui R.N. 15:47 08/21/16. Cardiac rhythm: sinus bradycardia. The patient reports no complaints and he is calm and resting quietly. Overall patient status is the same- he states feels the same. Patient waiting for CT results. --15:47 Kristel Cui R.N. 15:49 08/21/16. Care transferred and report given (Kristel Snell). --15:49 Miranda Jorge R.N. 16:00 08/21/2016 Site #1 started prior to arrival by EMS via IV in the right wrist with an 18g angiocath. --16:29 Kristel Cui R.N. 16:29 08/21/2016 Ativan (LORazepam) IVP 0.5 mg given over 1 minute(s) via site #1. Allergies verified, confirmed 5 rights and sedative warning given to the patient and patient's family. IV patency established. IV site checked: no pain, redness, or swelling. IV flushed thoroughly pre- and post-medication administration. IVP given by RN. --16:30 Kristel Cui R.N. 16:30 08/21/16. BP: 133/67. HR: 53. RR: 18. O2 saturation: 100%. --16:30 Kristel Cui R.N. 16:30 08/21/16. Cardiac rhythm: sinus bradycardia. ( Patient restless, pulling at ivs Meds given). --16:30 Kristel Cui R.N. 16:40 08/21/16. HR: 54. RR: 11. O2 saturation: 100% on nasal cannula at 2 liters/minute. Pain level now: 0/10. --16:42 Miranda Jorge R.N. 16:42 08/21/16. --16:42 Miranda Jorge R.N. Cardiac rhythm: right bundle branch block. --16:42 Miranda Jorge R.N. 16:42 08/21/16. BP: 111/70. HR: 54. RR: 11. O2 saturation: 100%. --16:42 Miranda Jorge R.N. late entry - 17:25 08/21/16. Patient not waiting for CT results. ( Patient crawled out of bed and is crawling around on the floor. Family unable to assist patient back to bed. he has pulled out EMS IV in right hand. Bleeding controlled. Code barragan called for assistance getting patient back to bed. Ward vest and bilateral soft wrist restraints applied. MD order received for restraints. Family updated on status and interventions. they are not willing to stay in room to help keep patient calm.). --19:12 Kristel Cui R.N. 17:30 08/21/16. 16 fr in/out catheterization. Reason for indwelling catheter: requires prolonged immobilization and patient's decreased level of consciousness. During procedure hand hygiene observed and sterile equipment and aseptic technique used. Return of 100 mL yellow-colored clear urine. He tolerated procedure well. Patient ID band checked for patient name and birthdate: patient confirmed. Catheterized urine collected with return of yellow-colored clear urine; sample sent to lab for urinalysis and culture. Specimen labeled in the presence of the patient. --17:35 Kristel Cui R.N. 17:50 08/21/16. ( Patient still agitated, combative. Pulled out 2nd IV in left hand. Blood all over sheets, gown, floor. MD informed. Haldol ordered. unable to restart IV due to safety. Elia in place. bilat soft wrist restraints in place but pt still able to move about on bed.). --18:02 Kristel Cui R.N. 17:55 08/21/2016 HALDOL (Haloperidol Lactate) IM 5 mg given. Given in the left deltoid. Allergies verified, confirmed 5 rights and sedative warning given to the patient. --18:04 Kristel Cui R.N. 19:20 08/21/2016 Site #3 started via IV in the right forearm with an 20g angiocath, with aseptic technique and good blood return; one attempt. Saline lock flushed with 10 mL saline. --19:25 Kristel Cui R.N. 19:22 08/21/2016 Started bag #1 1000 mL IV Fluids IV NS (Saline); at 2000 mL/hr over 30 minute(s) via site #3. Allergies verified and confirmed 5 rights. IV patency established. IV site checked: no pain, redness, or swelling. IV flushed thoroughly pre- and post-medication administration. --19:26 Kristel Cui R.N. ( Patient was able to get out of soft wrist restraints. Pt repostioned on bed. Ward vest and B/L wrist restraints reapplied. Distal pulses strong with good cap refill. Iv restarted in right lower arm. IV fluids running without s/o infiltration.). --21:08 Kristel Cui R.N. 21:08/21/16. BP: 146/90. HR: 66. RR: 20. O2 saturation: 97%. --21: Kristel Cui R.N. 17:15 08/21/2016 Site #2 removed upon admission (patient pulled out IV). --21: Kristel Cui R.N. 19:00 08/21/2016 Site #1 removed upon admission (patient pulled out IV). --21:10 Kristel Cui R.N. 21:08/21/16. Cardiac rhythm: normal sinus rhythm. --21: Kristel Cui R.N. 21:08/21/2016 HALDOL (Haloperidol Lactate) IVP 5 mg given over 1 minute(s) via site #3. Allergies verified, confirmed 5 rights and sedative warning given to the patient. IV patency established. IV site checked: no pain, redness, or swelling. IV flushed thoroughly pre- and post-medication administration. IVP given by RN. --: Kristel Cui R.N. DISPOSITION / DISCHARGE :08/21/16. Condition at departure: unchanged and stable. Admitted to the Critical Care Unit. Report was given to a nurse via a phone call. Report included patient's care, treatment, medications, reviewed medication reconcilliation, and condition (including any recent changes or anticipated changes). All questions were answered. --21: Kristel Cui R.N. 21:32 08/21/16. Patient's personal items include: pants, watch, belt and bag of medications; items were placed in belongings bag. --21:32 Kristel Cui R.N. 21:37 08/21/16. ( Pericare completed. New brief applied. Pt more cooperative after IV Haldol). --21:37 Kristel Cui R.N. 21:08 08/21/16. BP: 146/90. HR: 66. RR: 20. O2 saturation: 97%. 16:42 08/21/16. BP: 111/70. HR: 54. RR: 11. O2 saturation: 100%. 16:40 08/21/16. HR: 54. RR: 11. O2 saturation: 100% on nasal cannula at 2 liters/minute. Pain level now: 0/10. 16:28 08/21/16. BP: 133/67. HR: 53. RR: 18. O2 saturation: 100%. 15:44 08/21/16. HR: 50. RR: 18. O2 saturation: 100%. Pain level now 0/10. 15:44 08/21/16. HR: 48. RR: 12. O2 saturation: 99%. 15:09 08/21/16. BP: 117/54. HR: 51. RR: 8. O2 saturation: 100%. Temp: 98.4 F. --21:37 Kristel Cui R.N. Locked/Released at 08/21/2016 21:37 by Kristel Cui R.N.
--- NOTE | 2016-08-21 20:44 | ED CLINICAL REPORT ---
Clinical Report - Physicians/Mid Levels [facility] [address] [place] [address] 08/21/2016 15:04 Patient: BROOKE WAY Time Seen: 15:13; initial patient contact. Arrived- By ambulance. Historian- EMS personnel and family. History limited by altered mental status. Physical Exam limited by altered mental status. HISTORY OF PRESENT ILLNESS Chief Complaint: CHANGED MENTAL STATUS. The patient has been disoriented and confused and is described as having decreased responsiveness. This started about 3 weeks ago and is still present (worse since this AM). (Has suffered multiple CVA's in the past.). No history of chronic dementia. No alcohol recently, recent drug use or medication given prior to arrival. Dextro stick was not low prior to arrival. The patient has had difficulty walking. No recent fall. Similar symptoms previously: Several times. Recent medical care: The patient was seen recently in the office. ( Seen multiple times by PCP for dyspnea, MS change today). REVIEW OF SYSTEMS No fever or sputum production. He has had difficulty breathing, a cough and altered mental status. He has had difficulty walking. All systems otherwise negative, except as recorded above. PAST HISTORY ( UTI - Urinary Tract Infection. Laceration. Eye Pain. CVA - Cerebrovascular Accident. Viveros's Palsy. Anemia. Leukocytosis. Hyperkalemia. Dehydration. Renal Failure. Abdominal Pain. Congestive Heart Failure. Diverticulitis. Fall. Contusion. Leaky valve in heart?. Hypercholesterolemia. Hypertension. COPD - Chronic Obstructive Pulmonary Disease. CVA - Cerebrovascular Accident). Medications: LORazepam Oral. Sertraline HCl Oral. Aspirin Oral (Tablet 81 mg). Lisinopril Oral. Lovastatin Oral. Tylenol PM. Vitamins. Allergies: Strawberries. SOCIAL HISTORY Smoker - current status unknown. Is a local resident. Resides in a house. He lives with a family member. ADDITIONAL NOTES The nursing notes have been reviewed with agreement regarding the chief complaint, PMH and patient medications and allergies. PHYSICAL EXAM Vital Signs: 08/21/2016 15:09 BP: 117/54. HR: 51. RR: 8. O2 saturation: 100%. Temp: 98.4 F. Have been reviewed and do not appear to be correct. Hypotensive. Bradycardic. Bradypneic. Temperature normal. Oxygen saturation normal. Appearance: The patient's speech is slurred. Patient in mild distress. Eyes: Pupillary exam: Right pupil 5mm and round. Left pupil: 1mm and round. Left pupil not reactive to light directly or consensually or with accommodation. ENT: Dry mucous membranes present. Neck: Normal inspection. CVS: Bradycardia. Heart sounds normal. Respiratory: No respiratory distress. Breath sounds normal. Abdomen: Soft and nontender. No organomegaly. The bowel sounds are not abnormal. Skin: Poor skin turgor. Skin warm and dry. Normal skin color. No rash. Extremities: No lower extremity edema. Neuro: Altered mental status. Eyes open spontaneously. Best verbal response: incoherent speech. Best motor response: localizes to pain. Expressive aphasia. No weakness. No pronator drift. LABS, X-RAYS, AND EKG Chest X-ray: No acute disease. No infiltrate. (1. No acute changes 2. Old granulomatous disease). Views: AP. Technique: good. The X-rays were independently viewed by me, interpreted by the radiologist and contemporaneously by me and discussed with the radiologist. A comparison with prior films reveals that the findings are unchanged. Interpretation time: 17:26. CT Head: (1. No acute intracranial abnormality 2. Moderate atrophy and mild white matter chronic ischemic changes 3. 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 Dislocated left eye lens.). Head CT performed without contrast. The study was interpreted by the radiologist and discussed with the radiologist. Interpretation time: 17:01. Laboratory Tests: UA-Culture if indicated: (MEHUL: 08/21/2016 17:30) ( MsgRcvd 08/21/2016 17:54) Final results Test Result Flag Units (Reference) URINE COLOR YELLOW URINE APPEARANCE CLEAR URINE GLUCOSE NEGATIVE (NEGATIVE) URINE BILIRUBIN NEGATIVE (NEGATIVE) URINE KETONE NEGATIVE (NEGATIVE) URINE SPECIFIC GRAVITY 1.025 (1.010-1.030) URINE PH 6.0 (5.0-8.0) URINE PROTEIN NEGATIVE (NEGATIVE) URINE UROBILINOGEN 0.2 EU/dL (0.2-1.0) URINE NITRITE NEGATIVE (NEGATIVE) URINE BLOOD NEGATIVE (NEGATIVE) URINE LEUK ESTERASE NEGATIVE (NEGATIVE) URINE RBC 0-1 rbc/hpf (0-1) URINE WBC 0-1 wbc/hpf (0-1) URINE EPITHELIAL CELLS 0-1 EPI/hpf (0-5) URINE BACTERIA NONE SEEN (NONE SEEN) URINE COMMENT CULT NOT INDICATED URINE CULTURES ARE SET-UP BASED ON THE FOLLOWING CRITERIA:POSITIVE NITRITEPOSITIVE LEUKOCYTE ESTERASEGREATER THAN 10 WHITE BLOOD CELLSMODERATE (2+) OR GREATER BACTERIA CBC w Diff: (MEHUL: 08/21/2016 15:13) ( [facility] 08/21/2016 16:37) Final results Test Result Flag Units (Reference) WHITE BLOOD COUNT 4.5 K/uL (4.5-11.5) RED BLOOD COUNT 3.87 L M/uL (4.50-5.90) HEMOGLOBIN 11.6 L gm/dL (13.5-17.5) HEMATOCRIT 36.9 L % (41.0-53.0) MEAN CELL VOLUME 95 fL (80-100) MEAN CORPUSCULAR HGB 30 pg (26-34) MEAN CORPUSCULAR HGB CONC 32 g/dL (31-37) RED CELL DISTRIBUTION WIDTH 13.0 % (11.6-14.8) PLATELET COUNT 118 L K/uL (150-400) LYMPH % 37.7 % (25-40) MONO % 3.7 % (3-14) GRANULOCYTE % 58.6 PT with INR: (MEHUL: 08/21/2016 15:18) ( [facility] 08/21/2016 17:05) Final results Test Result Flag Units (Reference) INR 0.9 (0.8-1.2) Low Intensity Therapy: INR 1.5-2.0 PT range 18.5-23.1Mod.Intensity Therapy: INR 2.0-3.0 PT range 23.1-31.5High Intensity Therapy: INR 2.5-3.5 PT range 27.4-35.5High Intensity Therapy 2: INR 3.0-4.0 PT range 31.5-39.3 APTT 35 H SECONDS (24-34) FIBRINOGEN 416 mg/dL (193-455) D-DIMER QUANTITATIVE 0.66 H ug/mLFEU (0.27-0.52) The primary value of this quantitative assay relates toits negative predictive value (i.e. exclusion) of pulmonaryembolism/deep vein thrombosis/DIC.Elevated levels of d-dimer may also occur with:, age, cancer, inflammation, liver disease,post-op, infection, hematoma, coronary disease, peripheralarteriopathy, bleeding disorders and thrombolytic treatment.Results should be correlated with other clinical andradiological data.Testing Methodology: Latex Immunoassay CMP: (MEHUL: 08/21/2016 15:18) ( MsgRcvd 08/21/2016 17:13) Final results Test Result Flag Units (Reference) GLUCOSE 123 H mg/dL (70-110) BUN 30 H mg/dL (7-18) CREATININE 1.1 mg/dL (0.6-1.3) Estimated GFR >60 mL/min Estimated GFR- >60 mL/min Note: Persistent reduction over 3 months in eGFR<60 mL/min/1.73 m2 defines CKD. Patients with eGFR values>=60 mL/min/1.73 m2 may also have CKD if evidence ofpersistent proteinuria. Additional information may be foundat [email or web address].org. SODIUM 140 mmol/L (136-145) POTASSIUM 5.2 H mmol/L (3.5-5.1) CHLORIDE 108 H mmol/L (98-107) CARBON DIOXIDE 27 mmol/L (21-32) CALCIUM 8.2 L mg/dL (8.5-10.1) TOTAL PROTEIN 5.7 L g/dL (6.4-8.2) ALBUMIN 2.8 L g/dL (3.3-5.0) BILIRUBIN, TOTAL 0.2 mg/dL (0.0-1.0) ALKALINE PHOSPHATASE 68 U/L (46-116) AST (SGOT) 29 U/L (15-37) ALT (SGPT) 32 U/L (12-78) . PROGRESS AND PROCEDURES Course of Care: 08/21/2016 16:42 BP: 111/70. 08/21/2016 16:40 HR: 54. RR: 11. O2 saturation: 100%. Pain level now: 0/10. Vital Signs: have been reviewed. Blood pressure normal. Bradycardic. Bradypneic. Oxygen saturation normal. Discussed case with hospitalist, (20:[address] Schmidt). Reviewed test results and need for additional work-up. Agreed upon decision to admit. Health care provider will see patient in hospital. Disposition: Admitted to the Critical Care Unit. Condition: good. CLINICAL IMPRESSION Acute mental status change with confusion. Mild chronic anemia. (Electronically signed by Mark Alfonso Dr. 08/21/2016 20:52)
--- NOTE | 2016-08-21 20:44 | ED ORDER SUMMARY ---
..... Patient: BROOKE WAY OrderSheet [facility] VisitID: [id number] [address] [place] [address] 86y, M Registration Date/Time: 08/21/2016 ORDER SHEET Weight: 90.7 kg (estimated) Allergies: Strawberries GENERAL ORDERS: CT Head wo Cont Urgent (15:20 08/21/2016 Amandeep Mckinney) (Ack 15:21 TBergley) (15:40 MCampbell) Stroke Panel Stat (15:48 08/21/2016 Amandeep Mckinney) (Ack 15:55 TBergley) (17:31 TBergley) UA-Culture if indicated Urgent (15:48 08/21/2016 Amandeep Mckinney) (Ack 15:55 TBergley) (17:59 EInderbitzen R.N.) Chest 1V Urgent (15:48 08/21/2016 Amandeep Mckinney) (Ack 15:55 TBergley) (16:26 TBergley) Soft Restraints per protocol (19:45 08/21/2016 EInderbitzen R.N. verbal order read back to Amandeep Mckinney) (20:36 EInderbitzen R.N.) MEDICATION ORDERS: Haldol IM 5 mg (HIGH ALERT MEDICATION, NOW) (18:03 08/21/2016 EInderbitzen R.N. verbal order read back to Amandeep Mckinney) (18:04 EInderbitzen R.N.) IV FLUIDS: Ativan IV 0.5 mg (HIGH ALERT MEDICATION, NOW) (16:22 08/21/2016 Amandeep Mckinney) (16:30 EInderbitzen R.N.) IV NS : initial bolus none -, then 1000 mL/hr for X1 (NOW) (17:25 08/21/2016 Amandeep Mckinney) (19:26 EInderbitzen R.N.) Haldol IV 5 mg (HIGH ALERT MEDICATION, NOW) (17:45 08/21/2016 Amandeep Mckinney) (Cancelled: Physician Order18:03 EInderbitzen R.N.) Haldol IV 5 mg (HIGH ALERT MEDICATION, NOW) (20:42 08/21/2016 Amandeep Mckinney) (21:26 Lucas Vallejo) ORDER SHEET NOTES: [Electronically signed by Mark Alfonso Dr. (20:52 08/21/2016)] [Electronically signed by Kristel Cui R.N. (21:37 08/21/2016)] [Electronically locked/signed by Kristel Cui R.N. (21:37 08/21/2016)]
--- NOTE | 2016-08-21 21:14 | Progress Note ---
Subjective General Admission History and Physical Examination Patient Name: Danny Latif Admission Date: August 21, 2016 Primary Care Provider: John Lorenzana M.D. Attending Physician: Aravind Schmidt M.D. Admitting Physician: Aravind Schmidt M.D. SUBJECTIVE Historian: ER records, previous medical records Reliability: Fair-poor Chief Complaint: Shortness of breath, altered mental status History of Present Illness: The patient is a 86-year-old white male with a significant past medical history of dementia, hypertension, CHF, cerebrovascular disease status post CVA, pulmonary embolism, left eye blindness, COPD, BPH, hyperlipidemia, hearing loss, who presented to [facility] emergency department secondary to complaints of shortness of breath and altered mental status. [facility] ER evaluation was consistent with acute mental status changes with confusion/agitation. The patient was clearly unable to return to his home environment. Secondary to the above, the patient was admitted by Aravind Schmidt M.D. for further evaluation and treatment. The history of present illness apparently began 3 weeks prior to admission when the patient had changes in mental status. He recently had had a fall with head injury. He was subsequently seen at [facility] emergency department and [facility] emergency department. Workup included MRI of the head, laboratory testing which were essentially noncontributory. No new evidence of cerebrovascular accident. The patient was noted to have findings of dementia with associated behavioral disturbance last agitation. His symptoms have progressed which prompted his evaluation at [facility] emergency room on the day of admission. ER evaluation showed no new focal deficits. CT scan showed old stroke but no new CVA. Patient was treated with antipsychotics due to rather severe agitation with improved status. Secondary to the above, the patient was admitted with a diagnosis of dementia, behavioral disturbance for further evaluation treatment PAST MEDICAL HISTORY Illnesses: 1. Hypertension 2. Dementia 3. COPD 4. Hyperlipidemia 5. Cerebrovascular disease status post CVA 6. Hearing loss 7. Blindness left eye 8. History of pulmonary embolism 9. CHF 10. BPH Allergies: 1. No Known Drug Allergies Medications: 1. DuoNeb one via nebulizer every 6 hours when necessary shortness of breath 2. Aspirin 81 mg by mouth daily 3. Lasix 20 mg by mouth daily 4. Lisinopril 20 mg 2 by mouth daily 5. Ativan 0.5 mg by mouth every 6 hours when necessary for anxiety or insomnia 6. Mevacor 20 mg by mouth daily 7. Zoloft 50 mg by mouth daily Surgery: 1. Sigmoid colectomy 2. Tonsillectomy Injuries: 1. Unknown Hospitalizations: 1. For above surgery medical problems FAMILY HISTORY Unobtainable SOCIAL HISTORY 1. Marital Status: 2. Uatsdin: Unknown 3. Education: Unknown 4. Employment History: Worked in the past as an upholsterer, retired 5. Occupational health exposures: Unknown HABITS 1. Tobacco: Smoked many years-amount unknown 2. Drugs: None 3. Alcohol: Unknown 4. Caffeine: Unknown HEALTH SUPERVISION Item/Test 1. Not reviewed IMMUNIZATIONS: 1. Pneumococcal: Unknown 2. Influenza: Unknown 3. Tetanus: Unknown REVIEW OF SYSTEMS Remarkable for those things stated in the history of present illness and past medical history. Seventeen point review of system completed with the following notable findings: Unobtainable Physical Exam General Appearance Mild distress, uncooperative, mild agitation. HEENT Atraumatic, EOMI, mucous membranes slightly dry Lungs Clear to auscultation, Normal air movement Neck Supple, No JVD Cardiovascular Regular rate and rhythm, Normal S1 and S2, grade 1/6 systolic murmur present. No JVD. No peripheral edema. Abdomen Normal bowel sounds, Soft, No tenderness, No guarding Extremities No cyanosis, No clubbing Neurological Cranial nerves intact, Strength 5/5 x4 ext's Psych/Mental Status Confused, disoriented LAB Results Laboratory Tests 08/21 08/21 08/21 1730 1518 1513 Chemistry Plasma Sodium (136 - 145 mmol/L) 140 Plasma Potassium (3.5 - 5.1 mmol/L) 5.2 Plasma Chloride (98 - 107 mmol/L) 108 CO2 (Enzymatic) (21 - 32 mmol/L) 27 BUN (7 - 18 mg/dL) 30 Creatinine (0.6 - 1.3 mg/dL) 1.1 Est GFR ( Amer) (mL/min) >60 Est GFR (Non-Af Amer) (mL/min) >60 Glucose (70 - 110 mg/dL) 123 Plasma Calcium (8.5 - 10.1 mg/dL) 8.2 Total Bilirubin (0.0 - 1.0 mg/dL) 0.2 AST (15 - 37 U/L) 29 ALT (12 - 78 U/L) 32 Alkaline Phosphatase (46 - 116 U/L) 68 Total Protein (6.4 - 8.2 g/dL) 5.7 Albumin (3.3 - 5.0 g/dL) 2.8 Coagulation INR (0.8 - 1.2) 0.9 APTT (24 - 34 SECONDS) 35 Fibrinogen (193 - 455 mg/dL) 416 D-Dimer, Quantitative (0.27 - 0.52 ug/mLFEU) 0.66 Hematology WBC (4.5 - 11.5 K/uL) 4.5 RBC (4.50 - 5.90 M/uL) 3.87 Hgb (13.5 - 17.5 gm/dL) 11.6 Hct (41.0 - 53.0 %) 36.9 MCV (80 - 100 fL) 95 MCH (26 - 34 pg) 30 RDW (11.6 - 14.8 %) 13.0 Gran % 58.6 Lymph % (Auto) (25 - 40 %) 37.7 [place] % (Auto) (3 - 14 %) 3.7 Plt Count, EDTA (150 - 400 K/uL) 118 PUBS MCHC (31 - 37 g/dL) 32 Urines Urine Color YELLOW Urine Appearance CLEAR Urine pH (5.0 - 8.0) 6.0 Ur Specific [place] (1.010 - 1.030) 1.025 Urine Protein (NEGATIVE) NEGATIVE Urine Ketones (NEGATIVE) NEGATIVE Urine Blood (NEGATIVE) NEGATIVE Urine Nitrite (NEGATIVE) NEGATIVE Urine Bilirubin (NEGATIVE) NEGATIVE Urine Urobilinogen (0.2 - 1.0 EU/dL) 0.2 Ur Leukocyte Esterase (NEGATIVE) NEGATIVE Urine RBC (0 - 1 rbc/hpf) 0-1 Urine WBC (0 - 1 wbc/hpf) 0-1 Ur Epithelial Cells (0 - 5 EPI/hpf) 0-1 Urine Bacteria (NONE SEEN) NONE SEEN Urine Glucose (NEGATIVE) NEGATIVE Urine Comment CULT NOT INDICATED Imaging CT Scan Head IMPRESSION: 1. No acute intracranial abnormality 2. Moderate atrophy and mild white matter chronic ischemic changes 3. 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 Dislocated left eye lens. Dictated by: LOTTIE GIRALDO MD D: SOO;08/21/16 0713 Chest X-Ray IMPRESSION: 1. No acute changes 2. Old granulomatous disease Dictated by: LOTTIE GIRALDO MD D: SOO;08/21/16 1627 Assessment and Plan Problem List 1. Mental status change Plan -Patient presents with mental status change with confusion -CT scan shows no signs of acute ischemic disease -Patient with dementia with overlying behavioral problems/delirium -Zyprexa 5 mg by mouth now, monitor mental effects with ongoing usage as appropriate -Haldol 2-5 mg IM when necessary for extreme agitation 2. Dehydration Plan -Patient shows mild prerenal azotemia -Normal saline infusion -Monitor for fluid overload in setting of previous diagnosis of CHF -Recheck labs in a.m. 3. CVA, old, cognitive deficits Plan -Patient with prior CVA noted on recent MRI/CT scan -No acute ischemic changes noted on CT/MRI -Aspirin 81 mg by mouth daily -Monitor 4. Hypertension Plan -Continue outpatient medical regimen -Low-salt diet when taking well orally -Monitor 5. Hypercholesteremia Plan -History of hypercholesterolemia -Continue Lipitor 40 mg by mouth daily -Follow up lipid profile per Dr. Lorenzana if not performed recently -Low-cholesterol/ low-fat diet when taking well orally 6. Hyperkalemia Status Acute Onset Date Unknown Plan -Patient with findings of mild elevation of potassium -IV fluids -Recheck in a.m./monitor 7. Hyperglycemia Status Acute Onset Date Unknown Plan -Patient with mild hyperglycemia -Check hemoglobin A1c in a.m. -Monitor -Insulin sliding scale as needed 8. Dementia Status Chronic Onset Date Unknown Plan -Patient with previous cognitive defects -Patient unable to care for self at this point in his life will require placement in a supervised living situation post discharge -No further evaluation follow-up with PCP Dr. Lorenzana in a.m. Current status: Fair, unstable Anticipated discharge date: Anticipated discharge 1-2 days Anticipated discharge placement: Adult home/assisted living Patient care time: Time spent in chart review, patient interview, physical exam, CPOE, and care documentation: 70 minutes Visit to patient today: 1 Complexity of care: High E&M Codes Admission: Obsv-Comp/High/[id number]
--- NOTE | 2016-08-21 21:39 | ED MAR SUMMARY ---
..... Medication Administration Record [facility] [address] [place] [address] Patient: BROOKE WAY Visit ID: [id number] 86y, M Weight: 90.7 kg Height/Length: 70 in BMI: 28.7 ALLERGIES: Strawberries Given 16:29 08/21/2016 Kristel Cui R.N. Medication Administered: ATIVAN [IVP] (LORAZEPAM), Dose: 0.5 mg IVP over 1 minute(s), Site: #1 right wrist. Medication Ordered: Ativan IV 0.5 mg (HIGH ALERT MEDICATION, NOW). Given 17:55 08/21/2016 Kristel Cui R.N. Medication Administered: HALDOL [IM] (HALOPERIDOL LACTATE), Dose: 5 mg IM. Medication Ordered: Haldol IM 5 mg (HIGH ALERT MEDICATION, NOW). Start 19:22 08/21/2016 Kristel Cui R.N. Medication Administered: IV NS (SALINE), Dose: IV Fluids over 30 minute(s), Rate: 2000 mL/hr, Dispensed: 1000 mL bag, Site: #3 right forearm. Medication Ordered: IV NS : initial bolus none -, then 1000 mL/hr for X1 (NOW). Given 21:26 08/21/2016 Kristel Cui R.N. Medication Administered: HALDOL [IVP] (HALOPERIDOL LACTATE), Dose: 5 mg IVP over 1 minute(s), Site: #3 right forearm. Medication Ordered: Haldol IV 5 mg (HIGH ALERT MEDICATION, NOW).
--- NOTE | 2016-08-21 21:39 | ED DISCHARGE INSTRUCTIONS ---
Patient: BROOKE WAY General Instructions [facility] VisitID: [id number] [address] [place] [address] 86y, M Registration Date/Time: 08/21/2016 Acute mental status change with confusion. Mild chronic anemia. (Electronically signed by Mark Alfonso Dr. 08/21/2016 20:52)
--- NOTE | 2016-08-21 21:39 | ED MED RECONCILIATION SUMMARY ---
Patient: BROOKE WAY Medication Reconciliation Report [facility] VisitID: [id number] [address] [place] [address] 86y, M Registration Date/Time: 08/21/2016 Weight: 90.7 kg Height/Length: 70 in. BMI: 28.7 ALLERGIES: Strawberries The patient's Home Medications are listed below: THE FOLLOWING MEDICATIONS NEED TO BE RECONCILED: Aspirin Oral (81 mg) Lisinopril Oral LORazepam Oral Lovastatin Oral Sertraline HCl Oral Tylenol PM Vitamins The source(s) of the original Home Medication information: Not obtained. The following Medications were given to the patient in the Emergency Department: Ativan [IVP] IVP 0.5 mg, administered: 08/21/2016 4:29:00 PM HALDOL [IM] IM 5 mg, administered: 08/21/2016 5:55:00 PM IV NS IV Fluids bolus 0, then 2000 mL/hr, administered: 08/21/2016 7:22:00 PM HALDOL [IVP] IVP 5 mg, administered: 08/21/2016 9:26:00 PM The following Medications were prescribed to the patient: None.
--- NOTE | 2016-08-21 21:39 | ED MAR SUMMARY ---
..... Medication Administration Record [facility] [address] [place] [address] Patient: BROOKE WAY Visit ID: [id number] 86y, M Weight: 90.7 kg Height/Length: 70 in BMI: 28.7 ALLERGIES: Strawberries Given 16:29 08/21/2016 Kristel Cui R.N. Medication Administered: ATIVAN [IVP] (LORAZEPAM), Dose: 0.5 mg IVP over 1 minute(s), Site: #1 right wrist. Medication Ordered: Ativan IV 0.5 mg (HIGH ALERT MEDICATION, NOW). Given 17:55 08/21/2016 Kristel Cui R.N. Medication Administered: HALDOL [IM] (HALOPERIDOL LACTATE), Dose: 5 mg IM. Medication Ordered: Haldol IM 5 mg (HIGH ALERT MEDICATION, NOW). Start 19:22 08/21/2016 Kristel Cui R.N. Medication Administered: IV NS (SALINE), Dose: IV Fluids over 30 minute(s), Rate: 2000 mL/hr, Dispensed: 1000 mL bag, Site: #3 right forearm. Medication Ordered: IV NS : initial bolus none -, then 1000 mL/hr for X1 (NOW). Given 21:26 08/21/2016 Kristel Cui R.N. Medication Administered: HALDOL [IVP] (HALOPERIDOL LACTATE), Dose: 5 mg IVP over 1 minute(s), Site: #3 right forearm. Medication Ordered: Haldol IV 5 mg (HIGH ALERT MEDICATION, NOW).
--- NOTE | 2016-08-21 21:39 | ED DISCHARGE INSTRUCTIONS ---
Patient: BROOKE WAY General Instructions [facility] VisitID: [id number] [address] [place] [address] 86y, M Registration Date/Time: 08/21/2016 Acute mental status change with confusion. Mild chronic anemia. (Electronically signed by Mark Alfonso Dr. 08/21/2016 20:52)
--- NOTE | 2016-08-21 21:39 | ED MED RECONCILIATION SUMMARY ---
Patient: BROOKE WAY Medication Reconciliation Report [facility] VisitID: [id number] [address] [place] [address] 86y, M Registration Date/Time: 08/21/2016 Weight: 90.7 kg Height/Length: 70 in. BMI: 28.7 ALLERGIES: Strawberries The patient's Home Medications are listed below: THE FOLLOWING MEDICATIONS NEED TO BE RECONCILED: Aspirin Oral (81 mg) Lisinopril Oral LORazepam Oral Lovastatin Oral Sertraline HCl Oral Tylenol PM Vitamins The source(s) of the original Home Medication information: Not obtained. The following Medications were given to the patient in the Emergency Department: Ativan [IVP] IVP 0.5 mg, administered: 08/21/2016 4:29:00 PM HALDOL [IM] IM 5 mg, administered: 08/21/2016 5:55:00 PM IV NS IV Fluids bolus 0, then 2000 mL/hr, administered: 08/21/2016 7:22:00 PM HALDOL [IVP] IVP 5 mg, administered: 08/21/2016 9:26:00 PM The following Medications were prescribed to the patient: None.
[2016-08-21 21:58] VITALS: BP 129/70
[2016-08-22 02:43] VITALS: BP 129/60
[2016-08-22] MEDS ORDERED: ACETAMINOPHEN500 MG PO (02:51)
[2016-08-22] MEDS ORDERED: SERTRALINE HCL50 MG PO (02:52)
[2016-08-22] MEDS ORDERED: IPRATROPIUM BROMIDE/ (02:52)
[2016-08-22 07:38] VITALS: BP 127/62
--- NOTE | 2016-08-22 08:41 | Progress Note ---
Subjective General No specific complaint. Denies SOB. Back pain per usual. alert and responsive appropriately but speech is intelligible as usual. Constitutional Denies: Fever, Chills, Sweats, Weakness, Malaise. Eyes Other (Hx Viveros's palsy and L lens dis). Denies: Pain, Vision Change, Conjunctival Inflammation, Eyelid Inflammation, Redness. ENT Denies: Ear Pain, Ear Discharge, Nose Pain, Nasal Discharge, Nasal Congestion, Mouth Pain, Mouth Swelling, Throat Pain, Throat Swelling. Respiratory Cough, SOB w/exertion, Sputum (clear). Denies: Wheezing, Hemoptysis, Pleuritic Pain. Cardiovascular Denies: Chest Pain, Palpitations, Orthopnea, PND, Edema, Light-headedness. Gastrointestinal Diarrhea. Denies: Nausea, Vomiting, Abdominal Pain, Constipation, Melena, Hematochezia. Genitourinary Frequency, Incontinence. Denies: Dysuria, Hematuria, Retention. Musculoskeletal Back Pain, Leg Pain (Hx knee pains). Skin Bruising. Denies: Rash, Lesions, Jaundice. Neurological Incoordination (hx falls), Confusion, Other (Viveros's palsy). Denies: Weakness, Numbness, Change in speech, Seizures. Physical Exam Vital Signs / I&Os Vital Signs Date Time Temp Pulse Resp B/P Pulse O2 O2 Flow FiO2 Ox Delivery Rate 08/22 0738 97.5 58 18 127/62 96 Room Air 08/22 0243 97.7 58 20 129/60 98 Room Air 08/22 0142 2.0 08/21 2158 97.7 55 16 129/70 97 I&O 08/21 0800 08/21 1600 08/22 0000 Intake Total 0 Output Total 220 Balance -220 General Appearance Alert, Cooperative, No acute distress, oriented x 1-2. not time HEENT Atraumatic, Moist mucous membranes, Viveros's Palsy and L lens dislocation Lungs Clear to auscultation Breasts Symmetric Neck Supple, No masses, No lymphadenopathy Cardiovascular Regular rate and rhythm, No murmurs, gallops, rubs Abdomen Soft, No tenderness, No guarding, No rebound Pelvic Normal penis Extremities No cyanosis, No clubbing, No edema Skin 5 round welts on chest from ekg patches? Filthy., filthy but getting bathed Neurological Sensation intact, Strength 5/5 x4 ext's, No lateralizing signs, speech is mumbled as usual and difficult to understand. follows commands appropriately Psych/Mental Status Mental status normal (CT and MRI ok x 3 recently X o) LAB Results Laboratory Tests 08/21 08/21 08/21 1513 1518 1730 Chemistry Plasma Sodium (136 - 145 mmol/L) 140 Plasma Potassium (3.5 - 5.1 mmol/L) 5.2 Plasma Chloride (98 - 107 mmol/L) 108 CO2 (Enzymatic) (21 - 32 mmol/L) 27 BUN (7 - 18 mg/dL) 30 Creatinine (0.6 - 1.3 mg/dL) 1.1 Est GFR ( Amer) (mL/min) >60 Est GFR (Non-Af Amer) (mL/min) >60 Glucose (70 - 110 mg/dL) 123 Plasma Calcium (8.5 - 10.1 mg/dL) 8.2 Total Bilirubin (0.0 - 1.0 mg/dL) 0.2 AST (15 - 37 U/L) 29 ALT (12 - 78 U/L) 32 Alkaline Phosphatase (46 - 116 U/L) 68 Total Protein (6.4 - 8.2 g/dL) 5.7 Albumin (3.3 - 5.0 g/dL) 2.8 Coagulation INR (0.8 - 1.2) 0.9 APTT (24 - 34 SECONDS) 35 Fibrinogen (193 - 455 mg/dL) 416 D-Dimer, Quantitative (0.27 - 0.52 ug/mLFEU) 0.66 Hematology WBC (4.5 - 11.5 K/uL) 4.5 RBC (4.50 - 5.90 M/uL) 3.87 Hgb (13.5 - 17.5 gm/dL) 11.6 Hct (41.0 - 53.0 %) 36.9 MCV (80 - 100 fL) 95 MCH (26 - 34 pg) 30 RDW (11.6 - 14.8 %) 13.0 Gran % 58.6 Lymph % (Auto) (25 - 40 %) 37.7 [place] % (Auto) (3 - 14 %) 3.7 Plt Count, EDTA (150 - 400 K/uL) 118 PUBS MCHC (31 - 37 g/dL) 32 Urines Urine Color YELLOW Urine Appearance CLEAR Urine pH (5.0 - 8.0) 6.0 Ur Specific [place] (1.010 - 1.030) 1.025 Urine Protein (NEGATIVE) NEGATIVE Urine Ketones (NEGATIVE) NEGATIVE Urine Blood (NEGATIVE) NEGATIVE Urine Nitrite (NEGATIVE) NEGATIVE Urine Bilirubin (NEGATIVE) NEGATIVE Urine Urobilinogen (0.2 - 1.0 EU/dL) 0.2 Ur Leukocyte Esterase (NEGATIVE) NEGATIVE Urine RBC (0 - 1 rbc/hpf) 0-1 Urine WBC (0 - 1 wbc/hpf) 0-1 Ur Epithelial Cells (0 - 5 EPI/hpf) 0-1 Urine Bacteria (NONE SEEN) NONE SEEN Urine Glucose (NEGATIVE) NEGATIVE Urine Comment CULT NOT INDICATED 08/22 0445 Chemistry Plasma Sodium (136 - 145 mmol/L) 145 Plasma Potassium (3.5 - 5.1 mmol/L) 5.1 Plasma Chloride (98 - 107 mmol/L) 112 CO2 (Enzymatic) (21 - 32 mmol/L) 30 BUN (7 - 18 mg/dL) 18 Creatinine (0.6 - 1.3 mg/dL) 0.9 Est GFR ( Amer) (mL/min) >60 Est GFR (Non-Af Amer) (mL/min) >60 Glucose (70 - 110 mg/dL) 92 Plasma Calcium (8.5 - 10.1 mg/dL) 8.9 Microbiology Date/Time Procedure - Status Source Growth 08/22 0001 MRSA Screen - RECD NASAL Assessment and Plan Problem List 1. Senile dementia, delirium Plan COMFORTABLE AND COOPERATIVE TODAY. CONDITION HAS PROGRESSED TO THE POINT HIS DAUGHTER CAN NO LONGER CARE FOR HIM 24/7 AND WILL HAVE SS ARRANGE FOR NHP. DAUGHTER SHOULD ACCEPT GAURDIANSHIP AND RECONSIDER DNR STATUS. discussed with her today and she agrees. 2. Mental status change Plan COMFORTABLE ON GEODONE 3. COPD (chronic obstructive pulmonary disease) Plan TABLE AND NEBS RX;D 4. Viveros palsy Plan CHRONIC 5. Hypertension 6. Hypercholesteremia Plan CONTROLLED 7. BPH (benign prostatic hyperplasia) Plan CHRONIC INCONTINENCE. ATTENDS. NO CAMERON DUE TO CONFUSION. HE WILL PULL IT OUT.
[2016-08-22 11:04] VITALS: BP 119/59
[2016-08-22 14:36] VITALS: BP 147/58
[2016-08-22 19:43] VITALS: BP 144/43
[2016-08-23 08:45] VITALS: BP 118/39
--- NOTE | 2016-08-23 08:58 | Progress Note ---
Physical Exam Vital Signs / I&Os Vital Signs Date Time Temp Pulse Resp B/P Pulse O2 O2 Flow FiO2 Ox Delivery Rate 08/23 0845 97.9 68 19 118/39 99 Room Air 08/22 1943 98.1 59 20 144/43 99 08/22 1436 98.1 59 20 147/58 98 08/22 1104 98.1 56 16 119/59 100 Room Air I&O 08/22 0800 08/22 1600 08/23 0000 Intake Total 571 292 220 Output Total 324 7571 101 Balance 290 -430 -515
--- NOTE | 2016-08-23 08:58 | Progress Note ---
Physical Exam Vital Signs / I&Os Vital Signs Date Time Temp Pulse Resp B/P Pulse O2 O2 Flow FiO2 Ox Delivery Rate 08/23 0845 97.9 68 19 118/39 99 Room Air 08/22 1943 98.1 59 20 144/43 99 08/22 1436 98.1 59 20 147/58 98 08/22 1104 98.1 56 16 119/59 100 Room Air I&O 08/22 0800 08/22 1600 08/23 0000 Intake Total 571 292 220 Output Total 324 2687 468 Balance [phone] -149 -879
--- NOTE | 2016-08-23 09:33 | Progress Note ---
Subjective General Pt is somnolent but arousable and appropriate. Feeds himself with assistance. Ambulatory yesterday but unsteady. Impulsive activity. No overt complaints. Constitutional Weakness. Denies: Fever, Chills, Sweats, Malaise. Eyes Denies: Pain, Vision Change, Eyelid Inflammation. ENT Denies: Ear Pain, Nasal Discharge, Nasal Congestion, Throat Pain. Respiratory Denies: Cough, Dry, SOB w/exertion, Wheezing, Hemoptysis, Pleuritic Pain, Sputum. Cardiovascular Denies: Chest Pain, Palpitations, Orthopnea, PND, Edema, Light-headedness. Gastrointestinal Denies: Nausea, Vomiting, Abdominal Pain. Genitourinary Incontinence. Musculoskeletal Denies: Neck Pain, Shoulder Pain, Arm Pain, Back Pain, Hand Pain, Leg Pain, Foot Pain. Skin Denies: Rash, Jaundice, Bruising. Neurological Seizures, Other (Viveros's palsy). Denies: Change in speech (Barely intelligible/ usual). Physical Exam Vital Signs / I&Os Vital Signs Date Time Temp Pulse Resp B/P Pulse O2 O2 Flow FiO2 Ox Delivery Rate 08/23 0845 97.9 68 19 118/39 99 Room Air 08/22 1943 98.1 59 20 144/43 99 08/22 1436 98.1 59 20 147/58 98 08/22 1104 98.1 56 16 119/59 100 Room Air I&O 08/22 0800 08/22 1600 08/23 0000 Intake Total 571 292 220 Output Total 324 1025 499 Balance [phone] -763 -279 General Appearance Cooperative, No acute distress HEENT Atraumatic, Moist mucous membranes, L lens dislocated Lungs Clear to auscultation, Normal air movement Neck No JVD, No masses, No thyromegaly, No lymphadenopathy Cardiovascular Regular rate and rhythm, No murmurs, gallops, rubs Abdomen Normal bowel sounds, Soft, No tenderness Extremities No clubbing, No edema, Strength = upper ext's, Strength = lower ext' s Skin No Rashes, No Breakdown, No Significant Lesions Neurological Normal speech (difficult to comprehend but ap), No lateralizing signs Psych/Mental Status Mood normal, Confused Assessment and Plan Problem List 1. Senile dementia, delirium Plan Family has been unable to care for his progressive dementia at home with periods of delirium. Still confused and behavior unsafe and unreliable and therefore should remain as IP until appropriate facility for transfer is arranged. 2. Mental status change Plan More docile now and sleepy. Will moore Zyprex dosing to PM 3. 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 COPD (chronic obstructive pulmonary disease) Plan Pulmonary status stable.. 5. Viveros palsy 6. BPH (benign prostatic hyperplasia) Plan Intermittent incontinence 7. Hypertension Plan Fair control 8. Hypercholesteremia Plan On a statin
--- NOTE | 2016-08-23 09:33 | Progress Note ---
Subjective General Pt is somnolent but arousable and appropriate. Feeds himself with assistance. Ambulatory yesterday but unsteady. Impulsive activity. No overt complaints. Constitutional Weakness. Denies: Fever, Chills, Sweats, Malaise. Eyes Denies: Pain, Vision Change, Eyelid Inflammation. ENT Denies: Ear Pain, Nasal Discharge, Nasal Congestion, Throat Pain. Respiratory Denies: Cough, Dry, SOB w/exertion, Wheezing, Hemoptysis, Pleuritic Pain, Sputum. Cardiovascular Denies: Chest Pain, Palpitations, Orthopnea, PND, Edema, Light-headedness. Gastrointestinal Denies: Nausea, Vomiting, Abdominal Pain. Genitourinary Incontinence. Musculoskeletal Denies: Neck Pain, Shoulder Pain, Arm Pain, Back Pain, Hand Pain, Leg Pain, Foot Pain. Skin Denies: Rash, Jaundice, Bruising. Neurological Seizures, Other (Viveros's palsy). Denies: Change in speech (Barely intelligible/ usual). Physical Exam Vital Signs / I&Os Vital Signs Date Time Temp Pulse Resp B/P Pulse O2 O2 Flow FiO2 Ox Delivery Rate 08/23 0845 97.9 68 19 118/39 99 Room Air 08/22 1943 98.1 59 20 144/43 99 08/22 1436 98.1 59 20 147/58 98 08/22 1104 98.1 56 16 119/59 100 Room Air I&O 08/22 0800 08/22 1600 08/23 0000 Intake Total 571 292 220 Output Total 324 1025 499 Balance 862 -473 -279 General Appearance Cooperative, No acute distress HEENT Atraumatic, Moist mucous membranes, L lens dislocated Lungs Clear to auscultation, Normal air movement Neck No JVD, No masses, No thyromegaly, No lymphadenopathy Cardiovascular Regular rate and rhythm, No murmurs, gallops, rubs Abdomen Normal bowel sounds, Soft, No tenderness Extremities No clubbing, No edema, Strength = upper ext's, Strength = lower ext' s Skin No Rashes, No Breakdown, No Significant Lesions Neurological Normal speech (difficult to comprehend but ap), No lateralizing signs Psych/Mental Status Mood normal, Confused Assessment and Plan Problem List 1. Senile dementia, delirium Plan Family has been unable to care for his progressive dementia at home with periods of delirium. Still confused and behavior unsafe and unreliable and therefore should remain as IP until appropriate facility for transfer is arranged. 2. Mental status change Plan More docile now and sleepy. Will moore Zyprex dosing to PM 3. CVA, old, cognitive deficits Plan No new [employer] changes 4. COPD (chronic obstructive pulmonary disease) Plan Pulmonary status stable.. 5. Viveros palsy 6. BPH (benign prostatic hyperplasia) Plan Intermittent incontinence 7. Hypertension Plan Fair control 8. Hypercholesteremia Plan On a statin
[2016-08-23] MEDS ORDERED: ATORVASTATIN CA20 MG PO (09:44)
[2016-08-23] MEDS ORDERED: OLANZAPINE2.5 MG PO (09:44)
[2016-08-23] MEDS ORDERED: LISINOPRIL10 MG PO (09:44)
--- NOTE | 2016-08-23 09:46 | Provider's Discharge Care Plan ---
Problem, Goal, Plan Problem List 1. Senile dementia, delirium Goals: Improve function Instructions: Take meds as directed
--- NOTE | 2016-08-23 09:46 | Provider's Discharge Care Plan ---
Problem, Goal, Plan Problem List 1. Senile dementia, delirium Goals: Improve function Instructions: Take meds as directed
--- NOTE | 2016-08-23 09:47 | Provider's Discharge Care Plan ---
Problem, Goal, Plan Problem List 1. Senile dementia, delirium Goals: Improve disease control, Improve function, Improved health/wellness Instructions: Take meds as directed, Reduce stress
--- NOTE | 2016-08-23 09:47 | Provider's Discharge Care Plan ---
Problem, Goal, Plan Problem List 1. Senile dementia, delirium Goals: Improve disease control, Improve function, Improved health/wellness Instructions: Take meds as directed, Reduce stress
[2016-08-23 11:25] VITALS: BP 121/67
[2016-08-23 22:29] VITALS: BP 105/43
--- NOTE | 2016-08-24 09:10 | Progress Note ---
Subjective General Pt. admitted with confusion, uncooperative, impulsive behavior no longer able to be managed at home. 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 Yesterday he developed increased frequency of urination. UA showed many WBCs. He's beenstarted on po levofloxacin. He has required occ. lorazepam to help manage restlessness. Constitutional Other (unsteady on feet.). Denies: Fever, Chills, Sweats. Eyes Denies: Pain, Conjunctival Inflammation, Eyelid Inflammation. ENT Denies: Other (no new problems). Respiratory Other (occ. loose cough due to COPD). Cardiovascular Denies: Chest Pain, Palpitations, Orthopnea, PND, Edema. Gastrointestinal Denies: Nausea, Vomiting, Abdominal Pain, Diarrhea, Melena, Hematochezia. Genitourinary Denies: Frequency, Incontinence, Other (UA suggesting UTI-prostatitis). Musculoskeletal Denies: Other (no com[plaints). Skin Bruising. Denies: Other (no new problems). Neurological Confusion, Other (persistent dysarthria). Physical Exam Vital Signs / I&Os Vital Signs Date Time Temp Pulse Resp B/P Pulse O2 O2 Flow FiO2 Ox Delivery Rate 08/23 2229 98.2 65 16 105/43 96 Room Air 08/23 1125 98.2 68 18 121/67 100 Room Air I&O 08/23 0800 08/23 1600 08/24 0000 Intake Total 60 Output Total 255 500 225 Balance -255 -440 -225 General Appearance a little somnolent this am. Able to cooperate and take meds, requiring restraints for safety. HEENT No change. Lungs Scattered rhonchi, generally decreased air movement. Neck No JVD, No masses Cardiovascular Regular rate and rhythm, Normal S1 and S2, No murmurs, gallops, rubs Abdomen Normal bowel sounds, Soft, No tenderness, No guarding, No rebound, No masses Extremities No cyanosis, No clubbing, No edema, Normal pulses Skin No Breakdown, a few scattered bruises Neurological Unclear speech, not clearly oriented. Able to cooperate somewhat with commands. Psych/Mental Status Confused, frequently uncooperative. LAB Results Laboratory Tests 08/23 1345 Urines Urine Color YELLOW Urine Appearance CLOUDY Urine pH (5.0 - 8.0) 7.0 Ur Specific Dolores (1.010 - 1.030) 1.020 Urine Protein (NEGATIVE) 1+ Urine Ketones (NEGATIVE) NEGATIVE Urine Blood (NEGATIVE) 1+ Urine Nitrite (NEGATIVE) POSITIVE Urine Bilirubin (NEGATIVE) NEGATIVE Urine Urobilinogen (0.2 - 1.0 EU/dL) 1.0 Ur Leukocyte Esterase (NEGATIVE) POSITIVE Urine RBC (0 - 1 rbc/hpf) 1-3 Urine WBC (0 - 1 wbc/hpf) >100 Ur Epithelial Cells (0 - 5 EPI/hpf) NONE SEEN Urine Bacteria (NONE SEEN) TRACE (<1+) Urine Glucose (NEGATIVE) NEGATIVE Urine Comment I Microbiology Date/Time Procedure - Status Source Growth 08/23 1345 Urine Culture - RES URINE CATH Assessment and Plan Problem List 1. Senile dementia, delirium Plan Continues to be confused, impulsive and frequently uncooperative. 2. Hypertension Plan Stable with lisiniopril. 3. Hypercholesteremia Plan stable with current statin. 4. CVA, old, cognitive deficits Plan continues with dysarthric speech 5. Viveros palsy Plan stable. 6. COPD (chronic obstructive pulmonary disease) Plan Stable, not requiring specific Tx. 7. UTI (urinary tract infection) Plan UA indicative of UTI.. Started on levofloxacin at 500 mg po daily. Urine culture showing early growth. E&M Codes Rounding: Obsv-Comp/Moderate/[id number]
[2016-08-24 13:00] VITALS: BP 110/43
[2016-08-24 15:21] VITALS: BP 122/55
--- NOTE | 2016-08-25 07:54 | Progress Note ---
Subjective General Somnolent but arousable and mutters responses un intelligibly. Constitutional Denies: Fever, Sweats, Malaise. Respiratory Denies: Cough, SOB w/exertion, Wheezing. Cardiovascular Denies: Chest Pain, Palpitations, Edema. Gastrointestinal Denies: Nausea, Vomiting, Abdominal Pain. Genitourinary Incontinence. Musculoskeletal Denies: Neck Pain, Shoulder Pain, Arm Pain, Back Pain, Hand Pain, Leg Pain, Foot Pain. Neurological Weakness, Incoordination, Confusion. Physical Exam Vital Signs / I&Os Vital Signs Date Time Temp Pulse Resp B/P Pulse O2 O2 Flow FiO2 Ox Delivery Rate 08/24 2310 Room Air 08/24 1521 78 20 122/55 94 Room Air 08/24 1300 97.9 73 21 110/43 97 Room Air I&O 08/24 0800 08/24 1600 08/25 0000 Intake Total 600 100 Output Total 260 402 82 Balance -260 198 18 General Appearance Cooperative, No acute distress (lethargic but arousable) HEENT Atraumatic, R PRLA Lungs Normal exam, Clear to auscultation Neck No JVD, No masses, No thyromegaly Cardiovascular Regular rate and rhythm, No murmurs, gallops, rubs Abdomen Normal bowel sounds, Soft, No tenderness Extremities No edema Skin No Rashes, No Breakdown (R hip with min eryth w/o break), No Significant Lesions Neurological Normal speech (Not easily intelligible), No lateralizing signs, Hx Viveros's palsy with asymetry Psych/Mental Status Lethargic Assessment and Plan Problem List 1. Senile dementia, delirium Plan He may be over sedated from Geodone. I will d/c this and try seroquel in pm. Awaiting SNF placement 2. COPD (chronic obstructive pulmonary disease) Plan Stable and O2 OK 3. BPH (benign prostatic hyperplasia) Plan Int. incontinent 4. 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 Hypertension Plan Controlled
[2016-08-25] MEDS ORDERED: SEROQUEL25 MG PO (08:00)
--- NOTE | 2016-08-25 09:03 | DISCHARGE SUMMARY ---
ADMIT DATE: 08/21/2016 DISCHARGE DATE: 08/25/2016 ADMITTING DIAGNOSES: 1. Dementia with delirium 2. Altered mental status with frequent falls 3. Mild dehydration 4. Controlled hypertension 5. Hypercholesterolemia DISCHARGE DIAGNOSES: 1. Dementia with delirium 2. Altered mental status with frequent falls 3. Mild dehydration 4. Controlled hypertension 5. Hypercholesterolemia BRIEF HISTORY: The patient is an 86-year-old white male with progressive difficulties over the last month or 2 with increase in confusion and dementia. He has had several falls and severe emergency department workups that have not been revealing the more direct cause of his change in status at home. On the day of this admission, he was brought to the emergency department with shortness of breath and altered mental status. His daughter being worried that he had pneumonia. It was felt that he was unable to return home due to the multiple emergency room visits and inability of his daughter to take care of some any longer at her home. He had had several falls; however, recent CT scan x2 and an MRI scan x1 of the head did not reveal any intracranial process. His chest x-ray and CT of the head on this admission showed no acute conditions, though he remained demented and delirious requiring hospital admission. MEDICATIONS: 1. DuoNeb. 2. Baby aspirin. 3. Lasix 20 mg. 4. Lisinopril 20 twice daily. 5. Ativan 0.5 mg every 6 hours as needed. 6. Zoloft 50 mg nightly. 7. Mevacor 20 mg nightly. HOSPITAL COURSE: The patient was admitted and hydrated, resolving his initial dehydration. His electrolytes normalized and his BUN and creatinine showed no further evidence of renal insufficiency as it had on admission. Glucose level remained stable and liver functions were normal. He was mildly hypoalbumin and protein anemic. D- dimer was slightly elevated, but without any evidence of acute process. CBC was normal. Urinalysis and culture was taken, but urine culture pending at the time of dictation. He was treated with an atypical antipsychotic, that his Geodon, after Haldol in the emergency department to help control his behavioral disturbances. He remained intermittently confused and oriented. There were no signs of any other central nervous system problem. The Geodon was felt perhaps to be overly sedating at the time of discharge and therefore will be changed to Seroquel. DISCHARGE MEDICATIONS/INSTRUCTIONS: Seroquel 50 mg p.o. at bedtime, Lipitor 40 mg at bedtime. Lisinopril 20 mg daily. Furosemide 20 mg q.a.m. as needed for edema. He should continue on a baby aspirin daily. Disposition: The patient will be transferred to [facility]. Followup will be as needed at that facility or at the clinic. Diet will be as tolerated, probably mechanical soft or ground.
[2016-08-25 10:31] VITALS: BP 102/47
[2016-08-26] MEDS ORDERED: MORPHINE S20 MG/5 ML PO (08:03)
[2016-08-26] MEDS ORDERED: ATIVAN0.5 MG PO (08:04)
== END 2016-08-25 11:00 | disposition home or self-care (01) ==
LOC: ED SRH 15:04 → TRANS SRH 20:24 → CC SRH 20:24 → TRANS SRH 21:45 → CC SRH 21:45
PROVIDERS: ADMIT Internal Medicine
PROC: 3E0234Z Introduction of Serum, Toxoid and Vaccine into Muscle, Percutaneous Approach (ICD-10-PCS; principal; 2016-08-25)
DX: F03.91 Unspecified dementia, unspecified severity, with behavioral disturbance (principal); F05 Delirium due to known physiological condition; E86.0 Dehydration; N28.9 Disorder of kidney and ureter, unspecified; I10 Essential (primary) hypertension; E78.00 Pure hypercholesterolemia, unspecified; Z91.81 History of falling; Z23 Encounter for immunization
CPT/HCPCS: 29230; 29242; 29251; 29257; 29263; 83741; 85241; 90004; 90047; 90070; 90074; 90100; 90469; 90616; 91556; 91672; 92132; 92610; 92720; 94001; 94050; 94060; 95059

== ENCOUNTER 2016-08-25 12:27 | Observation (INO) | payer OTHER, MEDICARE ==
[~2016-08-25] VITALS: Ht 180.3 cm; Wt 75.8 kg
[~2016-08-25 12:27] MED LIST changes: +ACETAMINOPHEN500 MG PO; +ATORVASTATIN CA20 MG PO; +IPRATROPIUM BROMIDE/; +LISINOPRIL10 MG PO; +OLANZAPINE2.5 MG PO; +SEROQUEL25 MG PO; +SERTRALINE HCL50 MG PO
--- NOTE | 2016-08-25 13:13 | DIAGNOSTIC IMAGING REPORT ---
PROCEDURE: XR CHEST 1 VIEW INDICATION: ALTERED MENTAL STATUS TECHNIQUE: Portable AP view 12:52 p.m. COMPARISON: Chest 08/21/2016 FINDINGS: No acute infiltrates. Left mid lung and calcified granulomas. Heart and mediastinum are normal. Tortuous aorta. Thorax is normal. IMPRESSION: 1. No acute disease
--- NOTE | 2016-08-25 13:50 | DIAGNOSTIC IMAGING REPORT ---
PROCEDURE: CT HEAD WITHOUT CONTRAST INDICATION: ALTERED MENTAL STATUS TECHNIQUE: Axial CT images were acquired through the head. Coronal and sagittal reformations were created. COMPARISON: Head CT 08/21/2016 and 08/11/2016 FINDINGS: Moderate cortical atrophy with normal ventricular system. Mild white matter chronic ischemic changes. Small of right pontine lacunar infarct. Small old right occipital infarct. No evidence of acute intracranial process. Extensive calcific atherosclerosis of the carotid and vertebral arteries. Dislocated left eye lens. Visualized mastoids and sinuses are clear. IMPRESSION: 1. No acute intracranial abnormality 2. Moderate atrophy and mild white matter chronic ischemic changes 3. 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 Dislocated left eye lens. All CT scans at this facility use dose modulation, iterative reconstruction, and/or weight-based dosing when appropriate to reduce radiation dose to as low as reasonably achievable.
--- NOTE | 2016-08-25 15:57 | ED NURSING NOTES ---
Clinical Report - Nurses [facility] [address] [place] [address] 08/25/2016 12:27 Patient: BROO[address] TRIAGE Triage time 1236 PM. Chief Complaint: (unreponsive, hypoxic). Alert. No acute distress. CHERYL COMA SCORE: Cheryl Coma Scale: 9- eyes open to voice (3); best verbal response- incoherent speech (2); best motor response- withdrawal (4). --12:38 Finesse Vazquez R.N. 12:36 08/25/16. BP: 107/85. HR: 71. RR: 20. O2 saturation: 97% on room air. Pain level now unable to obtain. --12:38 Finesse Vazquez R.N. 12:38 08/25/16. Temp: 99.1 F (rectal). --12:43 Finesse Vazquez R.N. Acuity: LEVEL 2. --12:43 Finesse Vazquez R.N. Weight: 90 kg estimated. Height/Length: 72 inches Estimated. BMI: 26.9. --12:36 Finesse Vazquez R.N. Medications Aspirin Oral (Tablet 81 mg). Lisinopril Oral. LORazepam Oral. Lovastatin Oral. Sertraline HCl Oral. Tylenol PM. Vitamins. --12:42 Finesse Vazquez R.N. Allergies Strawberries. --12:42 Finesse Vazquez R.N. History Arrived by EMS. Historian: EMS. Primary care physician notified of patient's arrival. --12:38 Finesse Vazquez R.N. ( Patient presents to the ED with symptoms of unresponsiveness and hypoxia. Medics were dispatched to [facility] were they found patient sitting in a chair with [facility] holding patient up. Per medics patient was camilo and unresponsive. BP 80s systolic. Medics initated IV and fluids. DNR paperwork filled out, but not signed. Upon arrival patient alert and follows commands, but patient is difficulty to comprehend and it is difficult to assess orientation at this time. Patient right pupil blown and left pupil pinpoint. Back Feeder Plywood Layup Line equal bilaterally.). He has had weakness. --12:43 Finesse Vazquez R.N. PROBLEMS: Changed Mental Status. UTI - Urinary Tract Infection. Laceration. Eye Pain. CVA - Cerebrovascular Accident. Viveros's Palsy. Anemia. Leukocytosis. Hyperkalemia. Dehydration. Renal Failure. Abdominal Pain. Congestive Heart Failure. Diverticulitis. Fall. Contusion. Leaky valve in heart?. Hypercholesterolemia. Hypertension. COPD - Chronic Obstructive Pulmonary Disease. --12:43 Finesse Vazquez R.N. CVA - Cerebrovascular Accident [Resolved]. --12:43 Finesse Vazquez R.N. ADDITIONAL SURGERIES: Bowel Surgery. Tonsillectomy. --12:43 Finesse Vazquez R.N. PHYSICAL ASSESSMENT To room via stretcher. GENERAL / NEURO / PSYCH: Appears in pain. The patient is disoriented (unable to assess). He has had weakness. Pupillary exam: Right pupil 1mm, round and sluggishly reactive. Left pupil: 9mm and round. HEENT: No facial asymmetry noted. Mucous membranes are pink. RESPIRATORY: Respirations not labored. The patient can speak a few words at a time. Chest nontender. Breath sounds within normal limits. CVS: Normal sinus rhythm noted. Capillary refill less than 2 seconds. Pulses within normal limits. GI / : Abdomen soft and nontender and normal bowel sounds. SKIN: Skin intact. Skin is warm and dry. Normal skin turgor. --12:45 Finesse Vazquez R.N. NURSING PROGRESS NOTES 12:45 08/25/2016 Site #1 started prior to arrival by EMS via IV in the left upper arm with an 18g angiocath; one attempt. Saline lock flushed with 10 mL saline. --12:45 Finesse Vazquez R.N. 12:48 08/25/2016 Started bag #1 1000 mL IV Fluids IV NS (Saline); at 250 mL/hr via site #1 via IV pump. Allergies verified and confirmed 5 rights. IV patency established. IV site checked: no pain, redness, or swelling. IV flushed thoroughly pre- and post-medication administration. --12:48 Finesse Vazquez R.N. 13:01 08/25/2016 Site #2 started via IV in the right wrist with an 20g angiocath; one attempt. Blood drawn: rainbow set. Labeled in the presence of the patient and sent to the lab. Saline lock flushed with 10 mL saline. --13:01 Finesse Vazquez R.N. <<STRICKEN ENTRY-- ( Updated patient on status of care. Patient transferred to a regular chair because patient states that her bed with hurting her buttocks. Patient able to stand and transfer to chair with the assistance of a walker.). --13:13 Finesse Vazquez R.N. --END STRIKE>> Charted On Wrong Patient --13:13 Finesse Vazquez R.N. RESPIRATORY: No respiratory distress. Breath sounds normal. SKIN: Skin is warm and dry. Skin color within normal limits. --13:13 Finesse Vazquez R.N. ( Patient has returned from CT.). --13:20 Finesse Vazquez R.N. 13:21 08/25/16. BP: 101/54 taken on the right arm, via an automated monitor, while lying. HR: 69 (regular, normal rate and strong). RR: 18 (regular, unlabored and normal). O2 saturation: 100% on room air. Temp: 97.4 F (oral). --13:23 Patrick Ford 14:22 08/25/16. BP: 109/60. HR: 65. RR: 16. O2 saturation: 98%. Pain level now: 0/10. --14:23 Finesse Vazquez R.N. The patient is calm and resting quietly. RESPIRATORY: No respiratory distress. Breath sounds normal. CVS: Normal sinus rhythm noted. SKIN: Skin is warm and dry. Skin color within normal limits. ( Placed condom catheter on patient in order to obtain a urine specimen.). --15:00 Finesse Vazquez R.N. 15:00 08/25/16. BP: 120/69. HR: 67. RR: 16. O2 saturation: 100%. Pain level now: 0/10. --15:00 Finesse Vazquez R.N. ( Admitting physician at the bedside.). --15:09 Finesse Vazquez R.N. The patient reports no complaints and he is calm and resting quietly. Overall patient status is improved- he states feels better. RESPIRATORY: No respiratory distress. Breath sounds normal. CVS: Normal sinus rhythm noted. SKIN: Skin is warm and dry. Skin color within normal limits. --16:25 Finesse Vazquez R.N. 16:24 08/25/16. BP: 118/80. HR: 69. RR: 16. O2 saturation: 99%. Pain level now: 0/10. --16:25 Finesse Vazquez R.N. 18:22 08/25/16. BP: 128/56. HR: 81. RR: 16. O2 saturation: 97%. Temp: 97.7 F (oral). Pain level now: 0/10. --18:23 Finesse Vazquez R.N. The patient reports no complaints and he is calm and resting quietly. RESPIRATORY: No respiratory distress. Breath sounds normal. SKIN: Skin is warm and dry. Skin color within normal limits. ( Patient pulled out IV.). --18:23 Finesse Vazquez R.N. Care transferred and report received ([facility]). --19:04 Finesse Vazquez R.N. 19:13 08/25/2016 IV Fluids IV NS Discontinued: bag #1 infused upon admission. Total amount infused: 1000 mL. IV patency established. IV site checked: no pain, redness, or swelling. IV flushed thoroughly. --19:13 Finesse Vazquez R.N. Locked/Released at 08/25/2016 19:13 by Finesse Vazquez R.N.
--- NOTE | 2016-08-25 15:57 | ED ORDER SUMMARY ---
..... Patient: BROOKE WAY OrderSheet [facility] VisitID: [id number] [place] [address] 86y, M Registration Date/Time: 08/25/2016 ORDER SHEET Weight: 90 kg (estimated) Allergies: Strawberries GENERAL ORDERS: CT Head wo Cont Urgent (12:45 08/25/2016 Cornelio AQUINO) (Ack 13:00 LTapper) (15:06 HOShaughnessy R.N.) Chest 1V Urgent (12:46 08/25/2016 Cornelio AQUINO) (Ack 13:00 LTapper) (13:02 HOShaughnessy R.N.) Gear Hobber Set Up Operator (Continuous) (12:46 08/25/2016 Cornelio AQUINO) (13:02 HOShaughnessy R.N.) Cardiac Panel Stat (12:47 08/25/2016 Cornelio AQUINO) (Ack 13:00 LTapper) (14:12 HOShaughnessy R.N.) Oxygen (2 L/min) (NC) (12:47 08/25/2016 Cornelio AQUINO) (13:02 HOShaughnessy R.N.) Pulse oximeter (12:47 08/25/2016 Cornelio AQUINO) (13:02 HOShaughnessy R.N.) EKG - ER Stat (12:47 08/25/2016 Cornelio AQUINO) (Ack 13:00 LTapper) (13:01 LTapper) POC Glucose (12:47 08/25/2016 Cornelio AQUINO) (13:01 LTapper) - (cath if needed for the UA) (14:06 08/25/2016 Cornelio AQUINO) (Ack 14:22 LTapper) (15:06 HOShaughnessy R.N.) UA-Culture if indicated Urgent (14:07 08/25/2016 Cornelio AQUINO) (Ack 14:21 LTapper) (15:06 HOShaughnessy R.N.) MEDICATION ORDERS: IV FLUIDS: IV NS : initial bolus 250 mL (1000 mL/hr), then 100 mL/hr for X1 (NOW); Urgent (12:46 08/25/2016 Cornelio AQUINO) (12:48 aDgmar Vallejo) IV Saline Lock (12:47 08/25/2016 Cornelio AQUINO) (13:02 Dagmar Vallejo) ORDER SHEET NOTES: [Electronically signed by Finesse Vazquez R.N. (19:13 08/25/2016)] [Electronically signed by Gagan Pitts MD (23:27 08/25/2016)] [Electronically locked/signed by Finesse Vazquez R.N. (19:13 08/25/2016)]
--- NOTE | 2016-08-25 15:57 | ED ORDER SUMMARY ---
..... Patient: BROOKE WAY OrderSheet [facility] VisitID: [id number] [place] [address] 86y, M Registration Date/Time: 08/25/2016 ORDER SHEET Weight: 90 kg (estimated) Allergies: Strawberries GENERAL ORDERS: CT Head wo Cont Urgent (12:45 08/25/2016 Cornelio AQUINO) (Ack 13:00 LTapper) (15:06 HOShaughnessy R.N.) Chest 1V Urgent (12:46 08/25/2016 Cornelio AQUINO) (Ack 13:00 LTapper) (13:02 HOShaughnessy R.N.) Planer Off Bearer (Continuous) (12:46 08/25/2016 Cornelio AQUINO) (13:02 HOShaughnessy R.N.) Cardiac Panel Stat (12:47 08/25/2016 Cornelio AQUINO) (Ack 13:00 LTapper) (14:12 HOShaughnessy R.N.) Oxygen (2 L/min) (NC) (12:47 08/25/2016 Cornelio AQUINO) (13:02 HOShaughnessy R.N.) Pulse oximeter (12:47 08/25/2016 Cornelio AQUINO) (13:02 HOShaughnessy R.N.) EKG - ER Stat (12:47 08/25/2016 Cornelio AQUINO) (Ack 13:00 LTapper) (13:01 LTapper) POC Glucose (12:47 08/25/2016 Cornelio AQUINO) (13:01 LTapper) - (cath if needed for the UA) (14:06 08/25/2016 Cornelio AQUINO) (Ack 14:22 LTapper) (15:06 HOShaughnessy R.N.) UA-Culture if indicated Urgent (14:07 08/25/2016 Cornelio AQUINO) (Ack 14:21 LTapper) (15:06 HOShaughnessy R.N.) MEDICATION ORDERS: IV FLUIDS: IV NS : initial bolus 250 mL (1000 mL/hr), then 100 mL/hr for X1 (NOW); Urgent (12:46 08/25/2016 Cornelio AQUINO) (12:48 Dagmar Vallejo) IV Saline Lock (12:47 08/25/2016 Cornelio AQUINO) (13:02 Dagmar Vallejo) ORDER SHEET NOTES: [Electronically signed by Finesse Vazquez R.N. (19:13 08/25/2016)] [Electronically signed by Gagan Pitts MD (23:27 08/25/2016)] [Electronically locked/signed by Finesse Vazquez R.N. (19:13 08/25/2016)]
--- NOTE | 2016-08-25 15:57 | ED NURSING NOTES ---
Clinical Report - Nurses [facility] [address] [place] [address] 08/25/2016 12:27 Patient: BROOKE WAY TRIAGE Triage time 1236 PM. Chief Complaint: (unreponsive, hypoxic). Alert. No acute distress. CHERYL COMA SCORE: Cheryl Coma Scale: 9- eyes open to voice (3); best verbal response- incoherent speech (2); best motor response- withdrawal (4). --12:38 Finesse Vazquez R.N. 12:36 08/25/16. BP: 107/85. HR: 71. RR: 20. O2 saturation: 97% on room air. Pain level now unable to obtain. --12:38 Finesse Vazquez R.N. 12:38 08/25/16. Temp: 99.1 F (rectal). --12:43 Finesse Vazquez R.N. Acuity: LEVEL 2. --12:43 Finesse Vazquez R.N. Weight: 90 kg estimated. Height/Length: 72 inches Estimated. BMI: 26.9. --12:36 Finesse Vazquez R.N. Medications Aspirin Oral (Tablet 81 mg). Lisinopril Oral. LORazepam Oral. Lovastatin Oral. Sertraline HCl Oral. Tylenol PM. Vitamins. --12:42 Finesse Vazquez R.N. Allergies Strawberries. --12:42 Finesse Vazquez R.N. History Arrived by EMS. Historian: EMS. Primary care physician notified of patient's arrival. --12:38 Finesse Vazquez R.N. ( Patient presents to the ED with symptoms of unresponsiveness and hypoxia. Medics were dispatched to [facility] were they found patient sitting in a chair with [facility] holding patient up. Per medics patient was camilo and unresponsive. BP 80s systolic. Medics initated IV and fluids. DNR paperwork filled out, but not signed. Upon arrival patient alert and follows commands, but patient is difficulty to comprehend and it is difficult to assess orientation at this time. Patient right pupil blown and left pupil pinpoint. Bellman Captain equal bilaterally.). He has had weakness. --12:43 Finesse Vazquez R.N. PROBLEMS: Changed Mental Status. UTI - Urinary Tract Infection. Laceration. Eye Pain. CVA - Cerebrovascular Accident. Viveros's Palsy. Anemia. Leukocytosis. Hyperkalemia. Dehydration. Renal Failure. Abdominal Pain. Congestive Heart Failure. Diverticulitis. Fall. Contusion. Leaky valve in heart?. Hypercholesterolemia. Hypertension. COPD - Chronic Obstructive Pulmonary Disease. --12:43 Finesse Vazquez R.N. CVA - Cerebrovascular Accident [Resolved]. --12:43 Finesse Vazquez R.N. ADDITIONAL SURGERIES: Bowel Surgery. Tonsillectomy. --12:43 Finesse Vazquez R.N. PHYSICAL ASSESSMENT To room via stretcher. GENERAL / NEURO / PSYCH: Appears in pain. The patient is disoriented (unable to assess). He has had weakness. Pupillary exam: Right pupil 1mm, round and sluggishly reactive. Left pupil: 9mm and round. HEENT: No facial asymmetry noted. Mucous membranes are pink. RESPIRATORY: Respirations not labored. The patient can speak a few words at a time. Chest nontender. Breath sounds within normal limits. CVS: Normal sinus rhythm noted. Capillary refill less than 2 seconds. Pulses within normal limits. GI / : Abdomen soft and nontender and normal bowel sounds. SKIN: Skin intact. Skin is warm and dry. Normal skin turgor. --12:45 Finesse Vazquez R.N. NURSING PROGRESS NOTES 12:45 08/25/2016 Site #1 started prior to arrival by EMS via IV in the left upper arm with an 18g angiocath; one attempt. Saline lock flushed with 10 mL saline. --12:45 Finesse Vazquez R.N. 12:48 08/25/2016 Started bag #1 1000 mL IV Fluids IV NS (Saline); at 250 mL/hr via site #1 via IV pump. Allergies verified and confirmed 5 rights. IV patency established. IV site checked: no pain, redness, or swelling. IV flushed thoroughly pre- and post-medication administration. --12:48 Finesse Vazquez R.N. 13:01 08/25/2016 Site #2 started via IV in the right wrist with an 20g angiocath; one attempt. Blood drawn: rainbow set. Labeled in the presence of the patient and sent to the lab. Saline lock flushed with 10 mL saline. --13:01 Finesse Vazquez R.N. <<STRICKEN ENTRY-- ( Updated patient on status of care. Patient transferred to a regular chair because patient states that her bed with hurting her buttocks. Patient able to stand and transfer to chair with the assistance of a walker.). --13:13 Finesse Vazquez R.N. --END STRIKE>> Charted On Wrong Patient --13:13 Finesse Vazquez R.N. RESPIRATORY: No respiratory distress. Breath sounds normal. SKIN: Skin is warm and dry. Skin color within normal limits. --13:13 Finesse Vazquez R.N. ( Patient has returned from CT.). --13:20 Finesse Vazquez R.N. 13:21 08/25/16. BP: 101/54 taken on the right arm, via an automated monitor, while lying. HR: 69 (regular, normal rate and strong). RR: 18 (regular, unlabored and normal). O2 saturation: 100% on room air. Temp: 97.4 F (oral). --13:23 Patrick Ford 14:22 08/25/16. BP: 109/60. HR: 65. RR: 16. O2 saturation: 98%. Pain level now: 0/10. --14:23 Finesse Vazquez R.N. The patient is calm and resting quietly. RESPIRATORY: No respiratory distress. Breath sounds normal. CVS: Normal sinus rhythm noted. SKIN: Skin is warm and dry. Skin color within normal limits. ( Placed condom catheter on patient in order to obtain a urine specimen.). --15:00 Finesse Vazquez R.N. 15:00 08/25/16. BP: 120/69. HR: 67. RR: 16. O2 saturation: 100%. Pain level now: 0/10. --15:00 Finesse Vazquez R.N. ( Admitting physician at the bedside.). --15:09 Finesse Vazquez R.N. The patient reports no complaints and he is calm and resting quietly. Overall patient status is improved- he states feels better. RESPIRATORY: No respiratory distress. Breath sounds normal. CVS: Normal sinus rhythm noted. SKIN: Skin is warm and dry. Skin color within normal limits. --16:25 Finesse Vazquez R.N. 16:24 08/25/16. BP: 118/80. HR: 69. RR: 16. O2 saturation: 99%. Pain level now: 0/10. --16:25 Finesse Vazquez R.N. 18:22 08/25/16. BP: 128/56. HR: 81. RR: 16. O2 saturation: 97%. Temp: 97.7 F (oral). Pain level now: 0/10. --18:23 Finesse Vazquez R.N. The patient reports no complaints and he is calm and resting quietly. RESPIRATORY: No respiratory distress. Breath sounds normal. SKIN: Skin is warm and dry. Skin color within normal limits. ( Patient pulled out IV.). --18:23 Finesse Vazquez R.N. Care transferred and report received ([facility]). --19:04 Finesse Vazquez R.N. 19:13 08/25/2016 IV Fluids IV NS Discontinued: bag #1 infused upon admission. Total amount infused: 1000 mL. IV patency established. IV site checked: no pain, redness, or swelling. IV flushed thoroughly. --19:13 Finesse Vazquez R.N. Locked/Released at 08/25/2016 19:13 by Finesse Vazquez R.N.
--- NOTE | 2016-08-25 15:57 | ED CLINICAL REPORT ---
Clinical Report - Physicians/Mid Levels [facility] [address] [place] [address] 08/25/2016 12:27 Patient: BROOKE LATIF Time Seen: 12:34. Arrived- By ambulance. Historian- patient, EMS personnel and family. HISTORY OF PRESENT ILLNESS Chief Complaint: DECREASED MENTAL STATUS. The patient is described as having decreased responsiveness. This started just prior to arrival and is still present but is better now. It was abrupt in onset (Mr. Latif had just been transferred to [facility] when he collapsed and became unresponsive. He was hypotensive and unresponsive in the field but has gradually improved over the last 30 minutes.). The patient was found unresponsive. History of chronic dementia. No change in diabetic routine, alcohol recently, recent drug use or medication given prior to arrival. Dextro stick was not low prior to arrival. The patient has had weakness. No difficulty walking. No recent fall. The patient is usually alert, but disoriented to time; he usually stands for transfers. Similar symptoms previously: Once. Recent medical care: The patient was seen recently by a health care provider. ( He was just discharged from the hospital after a similar event 3 days ago. He had clinically improved and was transferred to an assisted living facility this morning.). REVIEW OF SYSTEMS No fever, head injury, dizziness, chest pain or difficulty breathing. No cough, sputum production, sore throat, abdominal pain or nausea. No black stools, vomiting or back pain. He has had a headache. PAST HISTORY ( Rachelle Colbert UTI - Urinary Tract Infection. Laceration. Eye Pain. CVA - Cerebrovascular Accident. Viveros's Palsy. Anemia. Leukocytosis. Hyperkalemia. Dehydration. Renal Failure. Abdominal Pain. Congestive Heart Failure. Diverticulitis. Fall. Contusion. Hypercholesterolemia. Hypertension. COPD - Chronic Obstructive Pulmonary Disease. CVA - Cerebrovascular Accident).). ADDITIONAL NOTES The nursing notes have been reviewed. PHYSICAL EXAM Vital Signs: 08/25/2016 18:22 BP: 128/56. HR: 81. RR: 16. O2 saturation: 97%. Temp: 97.7 F. Pain level now: 0/10. 08/25/2016 16:24 BP: 118/80. HR: 69. RR: 16. O2 saturation: 99%. Pain level now: 0. 08/25/2016 15:00 BP: 120/69. HR: 67. RR: 16. O2 saturation: 100%. Pain level now: 0. 08/25/2016 14:22 BP: 109/60. HR: 65. RR: 16. O2 saturation: 98%. Pain level now: 0. 08/25/2016 13:21 BP: 101/54. HR: 69. RR: 18. O2 saturation: 100%. Temp: 97.4 F. 08/25/2016 12:38 Temp: 99.1 F. 08/25/2016 12:36 BP: 107/85. HR: 71. RR: 20. O2 saturation: 97%. Appearance: (Initially minimally responsive except to pain. He did have eye blinking which were possibly a focal seizure. Gradually he could answer simple questions and move arms and legs on command.). Head: Head atraumatic. Eyes: No dysconjugate gaze. No nystagmus. ENT: Airway intact. Moist mucous membranes. Pharynx normal. Neck: Normal inspection. CVS: Normal heart rate and rhythm. Respiratory: No respiratory distress. Breath sounds normal. Abdomen: Soft and nontender. Skin: Skin warm. Normal skin color. Extremities: Extremities exhibit normal ROM. No lower extremity edema. Neuro: Altered mental status: confused and disoriented to place and time. Cranial nerve deficit present (R pupil 2 mm, L about 5 mm). No motor deficit. No sensory deficit. No Babinski reflex. LABS, X-RAYS, AND EKG EKG: Rate: 73. Normal P waves. Normal LORRAINE. RBBB. Left axis deviation. Non-specific ST segment / T wave abnormalities. The study has been independently viewed by me. Chest X-ray: (PROCEDURE: XR CHEST 1 VIEW INDICATION: ALTERED MENTAL STATUS TECHNIQUE: Portable AP view 12:52 p.m. COMPARISON: Chest 08/21/2016 FINDINGS: No acute infiltrates. Left mid lung and calcified granulomas. Heart and mediastinum are normal. Tortuous aorta. Thorax is normal. IMPRESSION: 1. No acute disease Electronically Final signed by:Kit Case MD 08/25/2016 1:17:16 PM). CT Head: (Atrophy, no bleeding, no changes PROCEDURE: CT HEAD WITHOUT CONTRAST INDICATION: ALTERED MENTAL STATUS TECHNIQUE: Axial CT images were acquired through the head. Coronal and sagittal reformations were created. COMPARISON: Head CT 08/21/2016 and 08/11/2016 FINDINGS: Moderate cortical atrophy with normal ventricular system. Mild white matter chronic ischemic changes. Small of right pontine lacunar infarct. Small old right occipital infarct. No evidence of acute intracranial process. Extensive calcific atherosclerosis of the carotid and vertebral arteries. Dislocated left eye lens. Visualized mastoids and sinuses are clear. IMPRESSION: 1. No acute intracranial abnormality 2. Moderate atrophy and mild white matter chronic ischemic changes 3. 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 Dislocated left eye lens. All CT scans at this facility use dose modulation, iterative reconstruction, and/or weight-based dosing when appropriate to reduce radiation dose to as low as reasonably achievable. Electronically Final signed by:Kit Case MD 08/25/2016 1:53:26 PM). The study was interpreted by the radiologist and discussed with the radiologist. Laboratory Tests: CBC w Diff: (MEHUL: 08/25/2016 12:55) ( MsgRcvd 08/25/2016 13:15) Final results Test Result Flag Units (Reference) WHITE BLOOD COUNT 7.2 K/uL (4.5-11.5) RED BLOOD COUNT 4.20 L M/uL (4.50-5.90) HEMOGLOBIN 12.8 L gm/dL (13.5-17.5) HEMATOCRIT 39.4 L % (41.0-53.0) MEAN CELL VOLUME 94 fL (80-100) MEAN CORPUSCULAR HGB 31 pg (26-34) MEAN CORPUSCULAR HGB CONC 33 g/dL (31-37) RED CELL DISTRIBUTION WIDTH 12.9 % (11.6-14.8) PLATELET COUNT 202 K/uL (150-400) LYMPH % 25.0 % (25-40) MONO % 5.3 % (3-14) GRANULOCYTE % 69.7 CHEM 13 PANEL: (MEHUL: 08/25/2016 12:55) ( MsgRcvd 08/25/2016 13:28) Final results Test Result Flag Units (Reference) GLUCOSE 129 H mg/dL (70-110) BUN 23 H mg/dL (7-18) CREATININE 1.3 mg/dL (0.6-1.3) Estimated GFR 55.37 mL/min Estimated GFR- >60 mL/min Note: Persistent reduction over 3 months in eGFR<60 mL/min/1.73 m2 defines CKD. Patients with eGFR values>=60 mL/min/1.73 m2 may also have CKD if evidence ofpersistent proteinuria. Additional information may be foundat [email or web address]. SODIUM 145 mmol/L (136-145) POTASSIUM 4.5 mmol/L (3.5-5.1) CHLORIDE 109 H mmol/L (98-107) CARBON DIOXIDE 28 mmol/L (21-32) CALCIUM 9.6 mg/dL (8.5-10.1) TOTAL PROTEIN 7.0 g/dL (6.4-8.2) ALBUMIN 3.1 L g/dL (3.3-5.0) BILIRUBIN, TOTAL 0.6 mg/dL (0.0-1.0) ALKALINE PHOSPHATASE 69 U/L (46-116) AST (SGOT) 45 H U/L (15-37) ALT (SGPT) 39 U/L (12-78) MAGNESIUM 1.8 mg/dL (1.8-2.4) CPK 163 U/L (24-260) TROPONIN I 0.44 ng/mL (0.00-1.5) TROPONIN REFERENCE RANGE:<0.1 NEGATIVE0.1-1.5 INDETERMINANT>1.5 POSITIVE . PROGRESS AND PROCEDURES Course of Care: Spoke with Dr Bush He is much more alert he can answer simple questions. On arrival he had blinking eye movements which may have been a seizure. 13:02 08/25/16. I spoke with two daughters who have decided on no CPR and emphasis on comfort measures. 15:06 08/25/16. Dr Prater, the hospitalist is here. 15:52 08/25/16. Plan is to admit for today and return to Assisted living on hospice tomorrow. Disposition orders written. Disposition: Admitted. CLINICAL IMPRESSION SYNCOPE WITH COLLAPSE. (Electronically signed by Gagan Pitts MD 08/25/2016 23:27)
--- NOTE | 2016-08-25 16:57 | History & Physical Report ---
Admission Admit Date 08/25/16 Information Source Information Source: Family Reliability: Good History Chief Complaint Past out and collapsed History of Present Illness Patient is an 86-year-old white male with progressive difficulties over the past 2 months with increasing confusion and dementia. He also had several falls and several emergency room Department workups for this. No particular etiology has been identified. He recently was admitted on August 21 and discharged today August 25 from inpatient admission here at [facility]. Please see discharge summary for details. He did have an extensive evaluation with CT and MRI scan of head which did not reveal any intracranial process. He was admitted on that visit for shortness of breath and altered mental status. It was arranged for him to go to [facility] and soon after getting there today he had a syncopal episode with collapse per ER M.D. patient was profoundly hypotensive. Patient did require at least several minutes to recover from this. Patient was unresponsive at that time and fairly ashen in color. Prognosis was discussed by the ER M.D. along with myself and patient family decided wanting comfort care and no further evaluation and treatment. Discharge planning and social media content manager did consult and arranged for patient to return to [facility] with hospice care. The [facility] recommended placing an observation status and arranging for discharge back to their care with hospice tomorrow. Patient History 1. 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 CVA, old, cognitive deficits 5. Hypertension 6. Hypercholesteremia 7. BPH (benign prostatic hyperplasia) 8. Renal failure 9. Diverticulitis 10. Atrial fibrillation 11. Mental status change 12. 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 Family History Relation not specified for: NOT ABLE TO COMMUNICATE AND HIS DAUGHTER DOES NOT RECALL HER GRANMOTHER'S PROBLMS. Advance Directive Durable POA-Healthcare (family wishes comfort care onl) Medications and Allergies Medications Current Medications Sig/Eladio Start time Last Medication Dose Route Stop Time Status Admin Acetaminophen 650 MG Q6H PRN 08/25 1630 AC PO Morphine Sulfate 1 MG Q30MIN PRN 08/25 1630 AC IV Ondansetron HCl 4 MG Q6H PRN 08/25 1630 AC IV Sodium Chloride 1,000 ML ASDIRECTED 08/25 1630 AC IV Allergies Coded Allergies: Procaine (Severe, Shortness of breath 08/22/16) Sulfamethoxazole w/Trimethoprim (From BACTRIM) (Hives 08/22/16) [place] (Mild, WATERY EYES 08/22/16) Review of Systems Constitutional Weakness. Denies: Fever, Chills. Other All other review of systems are reviewed and are negative except for as in HPI. This is reviewed with family members. Physical Exam Vital Signs / I&Os See ER MDs note for vital signs. General Appearance elderly male who is somewhat lethargic and drowsy but appears in no acute distress HEENT Atraumatic, dry buccal mucosa, PERRLA DC EOMI Lungs decreased breath sounds at his bases and some scant upper airway rhonchi Neck no adenopathy Cardiovascular Regular rate and rhythm, Normal S1 and S2, No murmurs, gallops, rubs Abdomen Normal bowel sounds, Soft, No tenderness Extremities trace bilateral pedal edema Skin No Rashes Neurological No lateralizing signs, he is drowsy but does awaken to physical and verbal stimuli. He is slow to answer questions. But does follow commands. He does verbalize to answer questions appropriately. LAB Results Laboratory Tests 08/25 1255 Chemistry Plasma Sodium (136 - 145 mmol/L) 145 Plasma Potassium (3.5 - 5.1 mmol/L) 4.5 Plasma Chloride (98 - 107 mmol/L) 109 CO2 (Enzymatic) (21 - 32 mmol/L) 28 BUN (7 - 18 mg/dL) 23 Creatinine (0.6 - 1.3 mg/dL) 1.3 Est GFR ( Amer) (mL/min) >60 Est GFR (Non-Af Amer) (mL/min) 55.37 Glucose (70 - 110 mg/dL) 129 Plasma Calcium (8.5 - 10.1 mg/dL) 9.6 Plasma Magnesium (1.8 - 2.4 mg/dL) 1.8 Total Bilirubin (0.0 - 1.0 mg/dL) 0.6 AST (15 - 37 U/L) 45 ALT (12 - 78 U/L) 39 Alkaline Phosphatase (46 - 116 U/L) 69 Creatine Kinase (24 - 260 U/L) 163 Troponin (0.00 - 1.5 ng/mL) 0.44 Total Protein (6.4 - 8.2 g/dL) 7.0 Albumin (3.3 - 5.0 g/dL) 3.1 Hematology WBC (4.5 - 11.5 K/uL) 7.2 RBC (4.50 - 5.90 M/uL) 4.20 Hgb (13.5 - 17.5 gm/dL) 12.8 Hct (41.0 - 53.0 %) 39.4 MCV (80 - 100 fL) 94 MCH (26 - 34 pg) 31 RDW (11.6 - 14.8 %) 12.9 Gran % 69.7 Lymph % (Auto) (25 - 40 %) 25.0 [place] % (Auto) (3 - 14 %) 5.3 Plt Count, EDTA (150 - 400 K/uL) 202 PUBS MCHC (31 - 37 g/dL) 33 Imaging REPORT #: [id number] DATE OF EXAM(S): 08/25/16 PROCEDURE: CT HEAD WITHOUT CONTRAST INDICATION: ALTERED MENTAL STATUS TECHNIQUE: Axial CT images were acquired through the head. Coronal and sagittal reformations were created. COMPARISON: Head CT 08/21/2016 and 08/11/2016 FINDINGS: Moderate cortical atrophy with normal ventricular system. Mild white matter chronic ischemic changes. Small of right pontine lacunar infarct. Small old right occipital infarct. No evidence of acute intracranial process. Extensive calcific atherosclerosis of the carotid and vertebral arteries. Dislocated left eye lens. Visualized mastoids and sinuses are clear. IMPRESSION: 1. No acute intracranial abnormality 2. Moderate atrophy and mild white matter chronic ischemic changes 3. 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 Dislocated left eye lens. All CT scans at this facility use dose modulation, iterative reconstruction, and/or weight-based dosing when appropriate to reduce radiation dose to as low as reasonably achievable. Dictated by: LOTTIE GIRALDO MD D: SOO;08/25/16 1349REPORT #: [id number] DATE OF EXAM(S): 08/25/16 PROCEDURE: XR CHEST 1 VIEW INDICATION: ALTERED MENTAL STATUS TECHNIQUE: Portable AP view 12:52 p.m. COMPARISON: Chest 08/21/2016 FINDINGS: No acute infiltrates. Left mid lung and calcified granulomas. Heart and mediastinum are normal. Tortuous aorta. Thorax is normal. IMPRESSION: 1. No acute disease Dictated by: LOTTIE GIRALDO MD D: SOO;08/25/16 1312 <Electro Assessment and Plan Problem List 1. Syncope and collapse Status Acute Onset Date 08/25/16 Plan After discussions with the family between the ER MNelly and myself the plan is for comfort care only. Patient will be placed in observation status and will be discharged tomorrow back to [facility] care assisted living with hospice consultation. No further evaluation will be undertaken per family's wishes for this syncopal and collapse episode. 2. Dementia Qualifiers Dementia type: Alzheimer's disease Alzheimer's disease onset: late-onset Dementia behavioral disturbance: without behavioral disturbance Qualified Code: G30.1 - Alzheimer's disease with late onset Status Chronic Onset Date Unknown Plan Care will be deemed by comfort care measures only. E&M Codes Admission: Obsv-Comp/High/08748
--- NOTE | 2016-08-25 16:57 | History & Physical Report ---
Admission Admit Date 08/25/16 Information Source Information Source: Family Reliability: Good History Chief Complaint Past out and collapsed History of Present Illness Patient is an 86-year-old white male with progressive difficulties over the past 2 months with increasing confusion and dementia. He also had several falls and several emergency room Department workups for this. No particular etiology has been identified. He recently was admitted on August 21 and discharged today August 25 from inpatient admission here at [facility]. Please see discharge summary for details. He did have an extensive evaluation with CT and MRI scan of head which did not reveal any intracranial process. He was admitted on that visit for shortness of breath and altered mental status. It was arranged for him to go to [facility] and soon after getting there today he had a syncopal episode with collapse per ER M.D. patient was profoundly hypotensive. Patient did require at least several minutes to recover from this. Patient was unresponsive at that time and fairly ashen in color. Prognosis was discussed by the ER M.D. along with myself and patient family decided wanting comfort care and no further evaluation and treatment. Discharge planning and social media campaign manager did consult and arranged for patient to return to [facility] with hospice care. The [facility] recommended placing an observation status and arranging for discharge back to their care with hospice tomorrow. Patient History 1. 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 CVA, old, cognitive deficits 5. Hypertension 6. Hypercholesteremia 7. BPH (benign prostatic hyperplasia) 8. Renal failure 9. Diverticulitis 10. Atrial fibrillation 11. Mental status change 12. 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 Family History Relation not specified for: NOT ABLE TO COMMUNICATE AND HIS DAUGHTER DOES NOT RECALL HER GRANMOTHER'S PROBLMS. Advance Directive Durable POA-Healthcare (family wishes comfort care onl) Medications and Allergies Medications Current Medications Sig/Eladio Start time Last Medication Dose Route Stop Time Status Admin Acetaminophen 650 MG Q6H PRN 08/25 1630 AC PO Morphine Sulfate 1 MG Q30MIN PRN 08/25 1630 AC IV Ondansetron HCl 4 MG Q6H PRN 08/25 1630 AC IV Sodium Chloride 1,000 ML ASDIRECTED 08/25 1630 AC IV Allergies Coded Allergies: Procaine (Severe, Shortness of breath 08/22/16) Sulfamethoxazole w/Trimethoprim (From BACTRIM) (Hives 08/22/16) [place] (Mild, WATERY EYES 08/22/16) Review of Systems Constitutional Weakness. Denies: Fever, Chills. Other All other review of systems are reviewed and are negative except for as in HPI. This is reviewed with family members. Physical Exam Vital Signs / I&Os See ER MDs note for vital signs. General Appearance elderly male who is somewhat lethargic and drowsy but appears in no acute distress HEENT Atraumatic, dry buccal mucosa, PERRLA DC EOMI Lungs decreased breath sounds at his bases and some scant upper airway rhonchi Neck no adenopathy Cardiovascular Regular rate and rhythm, Normal S1 and S2, No murmurs, gallops, rubs Abdomen Normal bowel sounds, Soft, No tenderness Extremities trace bilateral pedal edema Skin No Rashes Neurological No lateralizing signs, he is drowsy but does awaken to physical and verbal stimuli. He is slow to answer questions. But does follow commands. He does verbalize to answer questions appropriately. LAB Results Laboratory Tests 08/25 1255 Chemistry Plasma Sodium (136 - 145 mmol/L) 145 Plasma Potassium (3.5 - 5.1 mmol/L) 4.5 Plasma Chloride (98 - 107 mmol/L) 109 CO2 (Enzymatic) (21 - 32 mmol/L) 28 BUN (7 - 18 mg/dL) 23 Creatinine (0.6 - 1.3 mg/dL) 1.3 Est GFR ( Amer) (mL/min) >60 Est GFR (Non-Af Amer) (mL/min) 55.37 Glucose (70 - 110 mg/dL) 129 Plasma Calcium (8.5 - 10.1 mg/dL) 9.6 Plasma Magnesium (1.8 - 2.4 mg/dL) 1.8 Total Bilirubin (0.0 - 1.0 mg/dL) 0.6 AST (15 - 37 U/L) 45 ALT (12 - 78 U/L) 39 Alkaline Phosphatase (46 - 116 U/L) 69 Creatine Kinase (24 - 260 U/L) 163 Troponin (0.00 - 1.5 ng/mL) 0.44 Total Protein (6.4 - 8.2 g/dL) 7.0 Albumin (3.3 - 5.0 g/dL) 3.1 Hematology WBC (4.5 - 11.5 K/uL) 7.2 RBC (4.50 - 5.90 M/uL) 4.20 Hgb (13.5 - 17.5 gm/dL) 12.8 Hct (41.0 - 53.0 %) 39.4 MCV (80 - 100 fL) 94 MCH (26 - 34 pg) 31 RDW (11.6 - 14.8 %) 12.9 Gran % 69.7 Lymph % (Auto) (25 - 40 %) 25.0 [place] % (Auto) (3 - 14 %) 5.3 Plt Count, EDTA (150 - 400 K/uL) 202 PUBS MCHC (31 - 37 g/dL) 33 Imaging REPORT #: [id number] DATE OF EXAM(S): 08/25/16 PROCEDURE: CT HEAD WITHOUT CONTRAST INDICATION: ALTERED MENTAL STATUS TECHNIQUE: Axial CT images were acquired through the head. Coronal and sagittal reformations were created. COMPARISON: Head CT 08/21/2016 and 08/11/2016 FINDINGS: Moderate cortical atrophy with normal ventricular system. Mild white matter chronic ischemic changes. Small of right pontine lacunar infarct. Small old right occipital infarct. No evidence of acute intracranial process. Extensive calcific atherosclerosis of the carotid and vertebral arteries. Dislocated left eye lens. Visualized mastoids and sinuses are clear. IMPRESSION: 1. No acute intracranial abnormality 2. Moderate atrophy and mild white matter chronic ischemic changes 3. 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 Dislocated left eye lens. All CT scans at this facility use dose modulation, iterative reconstruction, and/or weight-based dosing when appropriate to reduce radiation dose to as low as reasonably achievable. Dictated by: LOTTIE GIRALDO MD D: SOO;08/25/16 1349REPORT #: [id number] DATE OF EXAM(S): 08/25/16 PROCEDURE: XR CHEST 1 VIEW INDICATION: ALTERED MENTAL STATUS TECHNIQUE: Portable AP view 12:52 p.m. COMPARISON: Chest 08/21/2016 FINDINGS: No acute infiltrates. Left mid lung and calcified granulomas. Heart and mediastinum are normal. Tortuous aorta. Thorax is normal. IMPRESSION: 1. No acute disease Dictated by: LOTTIE GIRALDO MD D: SOO;08/25/16 1312 <Electro Assessment and Plan Problem List 1. Syncope and collapse Status Acute Onset Date 08/25/16 Plan After discussions with the family between the ER MNelly and myself the plan is for comfort care only. Patient will be placed in observation status and will be discharged tomorrow back to [facility] care assisted living with hospice consultation. No further evaluation will be undertaken per family's wishes for this syncopal and collapse episode. 2. Dementia Qualifiers Dementia type: Alzheimer's disease Alzheimer's disease onset: late-onset Dementia behavioral disturbance: without behavioral disturbance Qualified Code: G30.1 - Alzheimer's disease with late onset Status Chronic Onset Date Unknown Plan Care will be deemed by comfort care measures only. E&M Codes Admission: Obsv-Comp/High/[id number]
[2016-08-25 19:26] VITALS: BP 145/64
--- NOTE | 2016-08-25 23:27 | ED MED RECONCILIATION SUMMARY ---
Patient: BROOKE WAY Medication Reconciliation Report [facility] VisitID: [id number] [address] [place] [address] 86y, M Registration Date/Time: 08/25/2016 Weight: 90 kg Height/Length: 72 in. BMI: 26.9 ALLERGIES: Strawberries The patient's Home Medications are listed below: THE FOLLOWING MEDICATIONS NEED TO BE RECONCILED: Aspirin Oral (81 mg) Lisinopril Oral LORazepam Oral Lovastatin Oral Sertraline HCl Oral Tylenol PM Vitamins The source(s) of the original Home Medication information: Not obtained. The following Medications were given to the patient in the Emergency Department: IV NS IV Fluids bolus 0, then 250 mL/hr, administered: 08/25/2016 12:48:00 PM The following Medications were prescribed to the patient: None.
--- NOTE | 2016-08-25 23:27 | ED DISCHARGE INSTRUCTIONS ---
Patient: BROOKE WAY General Instructions [facility] VisitID: [id number] [address] [place] [address] 86y, M Registration Date/Time: 08/25/2016 SYNCOPE WITH COLLAPSE. (Electronically signed by Gagan Pitts MD 08/25/2016 23:27)
--- NOTE | 2016-08-25 23:27 | ED MED RECONCILIATION SUMMARY ---
Patient: BROOKE WAY Medication Reconciliation Report [facility] VisitID: [id number] [address] [place] [address] 86y, M Registration Date/Time: 08/25/2016 Weight: 90 kg Height/Length: 72 in. BMI: 26.9 ALLERGIES: Strawberries The patient's Home Medications are listed below: THE FOLLOWING MEDICATIONS NEED TO BE RECONCILED: Aspirin Oral (81 mg) Lisinopril Oral LORazepam Oral Lovastatin Oral Sertraline HCl Oral Tylenol PM Vitamins The source(s) of the original Home Medication information: Not obtained. The following Medications were given to the patient in the Emergency Department: IV NS IV Fluids bolus 0, then 250 mL/hr, administered: 08/25/2016 12:48:00 PM The following Medications were prescribed to the patient: None.
--- NOTE | 2016-08-25 23:27 | ED MAR SUMMARY ---
..... Medication Administration Record [facility] [address] [place] [address] Patient: BROOKE WAY Visit ID: [id number] 86y, M Weight: 90.0 kg Height/Length: 72 in BMI: 26.9 ALLERGIES: Strawberries Start 12:48 08/25/2016 Finesse Vazquez R.N., Stop 19:13 08/25/2016 Finesse Vazquez R.N. Medication Administered: IV NS (SALINE), Dose: IV Fluids, Rate: 250 mL/hr, Dispensed: 1000 mL bag, Site: #1 left upper arm. Medication Ordered: IV NS : initial bolus 250 mL (1000 mL/hr), then 100 mL/hr for X1 (NOW); Urgent.
--- NOTE | 2016-08-25 23:27 | ED DISCHARGE INSTRUCTIONS ---
Patient: BROOKE WAY General Instructions [facility] VisitID: [id number] [address] [place] [address] 86y, M Registration Date/Time: 08/25/2016 SYNCOPE WITH COLLAPSE. (Electronically signed by Gagan Pitts MD 08/25/2016 23:27)
--- NOTE | 2016-08-25 23:27 | ED MAR SUMMARY ---
..... Medication Administration Record [facility] [address] [place] [address] Patient: BROOKE WAY Visit ID: [id number] 86y, M Weight: 90.0 kg Height/Length: 72 in BMI: 26.9 ALLERGIES: Strawberries Start 12:48 08/25/2016 Finesse Vazquez R.N., Stop 19:13 08/25/2016 Finesse Vazquez R.N. Medication Administered: IV NS (SALINE), Dose: IV Fluids, Rate: 250 mL/hr, Dispensed: 1000 mL bag, Site: #1 left upper arm. Medication Ordered: IV NS : initial bolus 250 mL (1000 mL/hr), then 100 mL/hr for X1 (NOW); Urgent.
[2016-08-26 03:07] VITALS: BP 128/67
[2016-08-26 06:09] VITALS: BP 141/85
--- NOTE | 2016-08-26 08:00 | Progress Note ---
Subjective General Patient is an 86-year-old white male with progressive difficulties over the past 2 months with increasing confusion and dementia. He also had several falls and several emergency room Department workups for this. No particular etiology has been identified. He recently was admitted on August 21 and discharged today August 25 from inpatient admission here at [facility]. Family desires comfort only and d/c on hospice to [facility] today Physical Exam Vital Signs / I&Os Vital Signs Date Time Temp Pulse Resp B/P Pulse O2 O2 Flow FiO2 Ox Delivery Rate 08/26 0609 97.5 77 18 141/85 90 Room Air 08/26 0307 89 20 128/67 92 Room Air 0.0 08/25 2304 98.8 117 20 92 Room Air 0.0 08/25 1926 98.2 78 20 145/64 93 I&O 08/26 0000 08/25 1600 08/25 0800 Intake Total Output Total Balance General Appearance wakes easily, ? hard of hearing. HEENT Normal exam Lungs Clear to auscultation Cardiovascular Regular rate and rhythm Abdomen Soft, No tenderness Extremities No edema, moves all well Neurological ? hard of hearing and some confusion LAB Results Laboratory Tests 08/25 08/25 1818 1255 Chemistry Plasma Sodium (136 - 145 mmol/L) 145 Plasma Potassium (3.5 - 5.1 mmol/L) 4.5 Plasma Chloride (98 - 107 mmol/L) 109 CO2 (Enzymatic) (21 - 32 mmol/L) 28 BUN (7 - 18 mg/dL) 23 Creatinine (0.6 - 1.3 mg/dL) 1.3 Est GFR ( Amer) (mL/min) >60 Est GFR (Non-Af Amer) (mL/min) 55.37 Glucose (70 - 110 mg/dL) 129 Plasma Calcium (8.5 - 10.1 mg/dL) 9.6 Plasma Magnesium (1.8 - 2.4 mg/dL) 1.8 Total Bilirubin (0.0 - 1.0 mg/dL) 0.6 AST (15 - 37 U/L) 45 ALT (12 - 78 U/L) 39 Alkaline Phosphatase (46 - 116 U/L) 69 Creatine Kinase (24 - 260 U/L) 163 Troponin (0.00 - 1.5 ng/mL) 0.44 Total Protein (6.4 - 8.2 g/dL) 7.0 Albumin (3.3 - 5.0 g/dL) 3.1 Hematology WBC (4.5 - 11.5 K/uL) 7.2 RBC (4.50 - 5.90 M/uL) 4.20 Hgb (13.5 - 17.5 gm/dL) 12.8 Hct (41.0 - 53.0 %) 39.4 MCV (80 - 100 fL) 94 MCH (26 - 34 pg) 31 RDW (11.6 - 14.8 %) 12.9 Gran % 69.7 Lymph % (Auto) (25 - 40 %) 25.0 [place] % (Auto) (3 - 14 %) 5.3 Plt Count, EDTA (150 - 400 K/uL) 202 PUBS MCHC (31 - 37 g/dL) 33 Urines Urine Color YELLOW Urine Appearance SL CLOUDY Urine pH (5.0 - 8.0) 5.5 Ur Specific [place] (1.010 - 1.030) >= 1.030 Urine Protein (NEGATIVE) 1+ Urine Ketones (NEGATIVE) TRACE Urine Blood (NEGATIVE) TRACE-LYSED Urine Nitrite (NEGATIVE) NEGATIVE Urine Bilirubin (NEGATIVE) NEGATIVE Urine Urobilinogen (0.2 - 1.0 EU/dL) 0.2 Ur Leukocyte Esterase (NEGATIVE) TRACE Urine RBC (0 - 1 rbc/hpf) 25-50 Urine WBC (0 - 1 wbc/hpf) 75-100 Ur Epithelial Cells (0 - 5 EPI/hpf) 10-15 Urine Bacteria (NONE SEEN) MODERATE (2+ TO 3+) Urine Glucose (NEGATIVE) NEGATIVE Urine Comment CULTURE INDICATED Microbiology Date/Time Procedure - Status Source Growth 08/25 1818 Urine Culture - RECD URINE CC Assessment and Plan Problem List 1. Syncope and collapse Plan No further work up per family and d/c on hospice 2. Dementia Qualifiers Dementia type: Alzheimer's disease Alzheimer's disease onset: late-onset Dementia behavioral disturbance: without behavioral disturbance Qualified Code: G30.1 - Alzheimer's disease with late onset Status Chronic Onset Date Unknown Plan chronic/stable 3. Atrial fibrillation Status Chronic Onset Date Unknown Plan stable.
[2016-08-26] MEDS ORDERED: MORPHINE S20 MG/5 ML PO (08:03)
[2016-08-26] MEDS ORDERED: ATIVAN0.5 MG PO (08:04)
--- NOTE | 2016-08-26 08:05 | Provider's Discharge Care Plan ---
Problem, Goal, Plan Problem List 1. Syncope and collapse Instructions: family desires no further work up and d/c today on hospice 2. Dementia Instructions: has dementia and comfort goal, comfort measures only
[2016-08-26 09:26] VITALS: BP 141/85
== END 2016-08-26 11:40 ==
LOC: ED SRH 12:27 → TRANS SRH 16:13 → ACUTE2 SRH 19:51
PROVIDERS: ADMIT Specialist
DX: I95.9 Hypotension, unspecified (principal); R55 Syncope and collapse; J44.9 Chronic obstructive pulmonary disease, unspecified; G30.1 Alzheimer's disease with late onset; F02.80 Dementia in other diseases classified elsewhere, unspecified severity, without behavioral disturbance, psychotic disturbance, mood disturbance, and anxiety; I48.2 Chronic atrial fibrillation
CPT/HCPCS: 29230; 29242; 83741; 85241; 90004; 90070; 90100; 90469; 90616; 91672; 92610; 92720; 95059